=== PATIENT | female | born 1985 | race Caucasian/White ===

== ENCOUNTER 2024-06-02 09:43 | Outpatient (REF) | payer MEDICAID, SELFPAY ==
--- OUTSIDE RECORDS SUMMARY | 2024-06-02 10:15 | XMS_ITS | Encounter Summary ---
Author Organization [employer] Address [address] 7[address] [place] [address] Care Team Providers Care House Detective Name Role Phone Unavailable Primary Care Provider Unavailabl e Reason for Visit * Reason Comments Pre-visit Planning SDOH Screening negat monisha and Tobacco screening negative Encounter Details Date Type Department Care Team ([facility] st Contact Info) Description 05/19/2024 Patient Outreach [facility] MEDICINE [address] [place] [address] Liz Goldberg MD [address] [place] [address] Pre-visit Planning (SDOH Screening negative and Tobacco screening negative) Social History Tobacco Use Types Packs/Day Years Used Date Smoking Tobacco: Never Smokeless Tobacco: Never Housing Stability Answer Date Recorded What is your housing situation today? I have anastacia tirado 05/19/[address] you li ve. Do you have problems with any of the following? None of the above 05/19/2024 Food Insecurity Answer Date Recorded Within the past 12 months, y ou worried that your food would run out before you got money to buy more: Never True 05/19/2024 Within the past 12 months,th e food you bought just didn't last and you didn't have enough money to get more: Never True Transportation Answer Date Recorded In the past 12 months, has l ack of transportation kept you from medical appts, meetings, work or from getting things needed for daily living? No 05/19/2024 Utilities Answer Date Recorded In the past 12 months, has t he electric, gas, oil or water company threatened to shut off services in your home? No 05/19/2024 Internet Access Answer Date Recorded Internet Access Q1 Yes 05/19/2024 Internet Access Q2 Not on file 05/19/2024 Comments Unknown Sex and Gender Information Value Date Recorded Sex Assigned at Female 02/17/2022 10:15 AM EDT Legal Sex Female 10:15 AM EDT Gender Identity Female 08/25/2023 8:28 AM EDT Sexual Orientation Straight 08/25/2023 8: 28 AM EDT documented as of this encounter Progress Notes * Cynthia Gimenez - 05/19/2024 2:21 PM EST TAYLOR Zacarias placed successful outbound call to patient for pre-visit planning. Patient name and confirmed. Patient confirms appt date and time, and has transportation arrangements. Biggest concern for appointment at this time is no concerns for now. Patient advised to bring to appointment a photo id and insurance card. Appropriate screenings completed in anticipation of appointment. documented in this encounter Plan of Treatment Not on file documented as of this encounter Visit Diagnoses Not on filedocumented in this encounter
--- OUTSIDE RECORDS SUMMARY | 2024-06-02 10:15 | XMS_ITS | Encounter Summary ---
Author Organization [employer] Address [address] [place] [address] Care Team Providers Care Supervisor Metal Furniture Assembly Name Role Phone Unavailable Primary Care Provider Unavailabl e Encounter Details Date Type Department Care Team (Late st Contact Info) Description 06/02/2024 9:00 AM EST Office Visit [facility] MEDICINE [address] [place] [address] Liz Goldberg MD [address], [place] [phone] Routine general medical examination at a health care facility (Primary Dx); Screening for lipid disorders; Screening for diabetes mellitus; Routine screening for STI (sexually transmitted infection); Metabolic dysfunction-associate d steatotic liver disease (MASLD); Elevated BP without diagnosis of hypertension; Dietary counseling; Exercise counseling; Class 1 obesity due to excess calories with serious comorbidity and body mass index (BMI) of 33.0 to 33.9 in adult Social History Tobacco Use Types Packs/Day Years Used Date Smoking Tobacco: Never Smokeless Tobacco: Never Depression Answer Date Recorded Patient Health Questionnaire-9 Score 15 06/02/2024 Patient Health Questionnaire-9 Score 15 06/02/2024 Last PHQ-9: Questionnaire Data Not on file 0 06/02/2024 Housing Stability Answer Date Recorded What is [...] off services in your home? No 05/19/2024 Depression Answer Date Recorded Patient Health Questionnaire-2 Score 5 06/02/2024 Internet Access Answer Date Recorded Internet Access Q1 Yes 05/19/2024 Internet Access Q2 Not on file 05/19/2024 Comments Unknown Sex and Gender Information Value Date Recorded Sex Assigned at Female 02/17/2022 10:15 AM EDT Legal Sex Female 10:15 AM EDT Gender Identity Female 08/25/2023 8:28 AM EDT Sexual Orientation Straight 08/25/2023 8: 28 AM EDT documented as of this encounter Last Filed Vital Signs Vital Sign Reading Time Taken Comments Blood Pressure 118/100 06/02/2024 9:02 AM EST Pulse 64 06/02/2024 9:02 AM EST Temperature 37.2 ??C (99 ??F) 06/02/2024 9:02 AM EST Respiratory Rate 12 06/02/2024 9:02 AM EST Oxygen Saturation - - Inhaled Oxygen Concentration - - Weight 71.4 kg (157 lb 6.4 oz) 06/02/2024 9:02 A M EST Height 147 cm (4' 9.87 ) 06/02/2024 9:02 AM EST Body Mass Index 33.04 06/02/2024 9:02 AM EST documented in this encounter Plan of Treatment Scheduled Orders Name Type Priority Associated Diagnoses Orde r Schedule Syphilis Screen Lab Routine Routine screening for STI (sexually transmitted infection) Expected: 06/02/2024 (Approximate), Expires: 06/02/2025 Hepatitis C Antibody with Reflex to HCV, RNA, Quantitative, Real-Time PCR Lab Routine Routine screening for STI (sexually transmitted infection) Expected: 06/02/2024 (Approximate), Expires: 06/02/2025 Hepatitis B Surface Antibody, Qualitative Lab Routine Routine screening for STI (sexually transmitted infection) Expected: 06/02/2024 (Approximate), Expires: 06/02/2025 Hepatitis B Core Antibody, Total Lab Routine Routine screening for STI (sexually transmitted infection) Expected: 06/02/2024 (Approximate), Expires: 06/02/2025 Chlamydia/N. Gonorrhoeae RNA, TMA, Urogenitial Microbiology Routine Routine screening for STI (sexually transmitted infection) Expected: 06/02/2024 (Approximate), Expires: 06/02/2025 HIV-1/2 Antigen and Antibodies, Fourth Generation, with Reflexes Lab Routine Routine screening for STI (sexually transmitted infection) Expected: 06/02/2024 (Approximate), Expires: 06/02/2025 Hepatitis B surface antigen, EIA Lab Routine Routine screening for STI (sexually transmitted infection) Expected: 06/02/2024 (Approximate), Expires: 06/02/2025 TSH with Reflex to Free T4 Lab Routine Elevated BP without diagnosis of hypertension Class 1 obesity due to excess calories with serious comorbidity and body mass index (BMI) of 33.0 to 33.9 in adult Expected: 06/02/2024 (Approximate), Expires: 06/02/2025 Hemoglobin A1c Lab Routine Screening for diabetes mellitus Expected: 06/02/2024 (Approximate), Expires: 06/02/2025 Comprehensive Metabolic Panel Lab Routine Metabolic dysfunction-associated steatotic liver disease (MASLD) Expected: 06/02/2024 (Approximate), Expires: 06/02/2025 Lipid Panel with Reflex to Direct LDL Lab Routine Screening for lipid disorders Expected: 06/02/2024 (Approximate), Expires: 06/02/2025 Albumin, Random Urine W/Creatinine Lab Routine Elevated BP without diagnosis of hypertension Expected: 06/02/2024 (Approximate), Expires: 06/02/2025 documented as of this encounter Visit Diagnoses Diagnosis Routine general medical examination at a health care facility- Primary Screening for lipid disorders Screening for diabetes mellitus Routine screening for STI (sexually transmitted infection) Screening examination for venereal disease Metabolic dysfunction-associated steatotic liver disease (MASLD) Elevated BP without diagnosis of hypertension Dietary counseling Dietary surveillance and counseling Exercise counseling Class 1 obesity due to excess calories with serious comorbidity and body mass index (BMI) of 33.0 to 33.9 in adult documented in this encounter Additional Health Concerns Assessment Noted Time PHQ-9 Depression Total Score: 15 025 10:06 AM EST documented as of this encounter
--- OUTSIDE RECORDS SUMMARY | 2024-06-02 10:15 | XMS_ITS | Encounter Summary ---
Author Organization [employer] [facility] Address [address] [place] [address] Care Team Providers Care Boiler Assistant Operator Name Role Phone Unavailable Primary Care Provider Unavailabl e Reason for Visit * Reason Onset Date Comments chart prep 05/27/2024 Encounter Details Date Type Department Care Team ([facility] st Contact Info) Description 05/27/2024 Telephone [facility] MEDICINE [address] [place] [address] Nancy Bhat MA chart prep Social History Tobacco Use Types Packs/Day Years [...] AM EDT documented as of this encounter Miscellaneous Notes * Telephone Encounter - Nancy Bhat MA - 05/27/2024 1:58 PM EST .Chart Prep Labs: not applicable Images: not applicable Vaccines due: Covid Due, Hep A Due, Hep B Due, and Flu Due Referrals: Completed Screenings: PAP Overdue care gaps: Sbirt, PHQ-9, and Tobias-7 documented in this encounter Plan of Treatment Not on file documented as of this encounter Visit Diagnoses Not on filedocumented in this encounter
--- OUTSIDE RECORDS SUMMARY | 2024-06-02 10:15 | XMS_ITS | Clinical Summary ---
Author Organization [employer] Address [address] 7t [place] [address] Care Team Providers Care Senior Geotechnical Engineer Name Role Phone Unavailable Primary Care Provider Unavailabl e Allergies Active Allergy Reactions Criticality Noted Date Comments Ibuprofen 08/25/2023 Body feels numb when taking, pt is ruling it an allergy Lactose 08/25/2023 Latex 08/25/2023 Penicillin G Anaphylaxis High 08/25/2023 Shellfish-Derived Products Medications DULoxetine (Cymbalta) [address] capsule Take 40 mg by mouth Once per day. 06/25/2023 Active cetirizine (ZyrTEC) 10 MG tablet Take 10 mg by mouth Once per day. 02/26/2023 Active famotidine (Pepcid) 20 MG tablet Take 20 mg by mouth 2 times daily. 02/04/2023 Active topiramate (Topamax) 25 MG tablet Take 1 tablet (25 mg) by mouth at bedtime. 30 tablet 11 06/02/2024 Active Active Problems Problem Noted Date Diagnosed Date Elevated BP without diagnosis of hypertension Headache 03/12/2022 Overview (06/01/2024): 37-year-old female with PMH of kidney stones, SIDDHARTHA, primary insomnia, conversion disorder, GERD, microscopic hematuria presenting for telehealth visit with a complaint of new onset headache ongoing for the last 2 to 3 months. Suspect that she might have diagnosis of migraine. Fortunately, she does not have red flag symptoms as outlined in the subjective. However, since this is a new headache with different characterization of headaches that she used to previously get there is concern for possible intracranial process going on. - Head CT ordered - I discussed with her to keep track of possible aggravating or alleviating factors for her headache. - I discussed with her she can take Tylenol 1 g every 8 hours and alternate with NSAID either ibuprofen or naproxen. Discussed with her to take the NSAIDs with food. - Red flag symptoms including fever, pain with turning her head left and right, episodes of passing out or lightheadedness, vomiting are all concerning and warrant her to go to the emergency department for emergent evaluation. - I discussed with her that she should have the head CT done as soon as possible so that we can make sure there is not something more insidious and concerning going on. -She should return for visit within 1 to 2 weeks, ideally with head CT done prior to return visit. Gastroesophageal reflux 06/11/2021 Hepatic lesion 06/11/2021 Metabolic dysfunction-associ ated steatotic liver disease (MASLD) 06/11/2021 Major depressive disorder 04/04/2020 Generalized anxiety disorder 02/09/2020 Conversion disorder 12/15/2018 Encounters Date Type Department Care Team Description 06/02/2024 9:00 AM EST Office Visit [address] [address] Liz Goldberg MD Routine general medical examination at a health care facility (Primary Dx); Screening for lipid disorders; Screening for diabetes mellitus; Routine screening for STI (sexually transmitted infection); Metabolic dysfunction-associat ed steatotic liver disease (MASLD); Elevated BP without diagnosis of hypertension; Dietary counseling; Exercise counseling; Class 1 obesity due to excess calories with serious comorbidity and body mass index (BMI) of 33.0 to 33.9 in adult 06/02/2024 Travel 05/27/[address] [address] Nancy Bhat MA chart prep 05/19/2024 Patient Outreach [address] [address] Liz Goldberg MD Pre-visit Planning (SDOH Screening negative and Tobacco screening negative) 04/01/[address] [address] Liz Goldberg MD Appointment Request from Last 3 Months Immunizations Name Administration Dates Next Due Tdap 02/14/2020 Social History Tobacco Use Types Packs/Day Years Used Date Smoking Tobacco: Never Smokeless Tobacco: Never Tobacco Cessation:Counseling Given: Not Answered Depression Answer Date Recorded Patient Health Questionnaire-9 [...] Orientation Straight 08/25/2023 8: 28 AM EDT Last Filed Vital Signs Vital Sign Reading [...] Mass Index 33.04 06/02/2024 9:02 AM EST Plan of Treatment Health Maintenance Due Date Last Done Comments Dental Oral Exam 1986 Dental Prophylaxis 1986 Dental X-Ray: Full Mouth 1986 Depression Screening 1986 HIV Screening 1986 Alcohol/Substance Use Screening 1998 Family Planning (PISQ) 2001 Hepatitis C Screening 02/04/2004 Hepatitis A Vaccines (1 of 2 - Risk 2-dose series) 2005 Hepatitis B Vaccines (1 of 3 - 19+ 3-dose series) 2005 Pap Smear 2007 Cervical Cancer Screening 02/04/2016 HPV/Cotest 02/04/2016 COVID-19 Vaccine (1 - 2023-2 5 season) 2023 Influenza Vaccine (#1) 2023 Tobacco Screening 08/24/2024 08/25/2023 Dental X-Ray: Bitewings 08/25/2024 08/25/2023 SDOH Screening 05/19/2025 05/19/2024 DTaP/Tdap/Td Vaccines (2 - T d or Tdap) 02/13/2030 02/14/2020 Zoster Vaccines (1 of 2) 02/04/2036 RSV Patients and Pa tients Aged 60 years or older (1 - 1-dose 75+ series) 2061 HIB Vaccines Aged Out No longer eligi ble based on patient's age to complete this topic HPV Vaccines Aged Out No longer eligi ble based on patient's age to complete this topic IPV Vaccines Aged Out No longer eligi ble based on patient's age to complete this topic Meningococcal Vaccine Aged Out No jodi arline eligible based on patient's age to complete this topic Pneumococcal Vaccine: Pediat rics (0 to 5 Years) and At-Risk Patients (6 to 49) Years) Aged Out No longer elig ible based on patient's age to complete this topic RSV under 20 months Aged Out No longe r eligible based on patient's age to complete this topic Rotavirus Vaccines Aged Out No longer eligible based on patient's age to complete this topic Procedures Procedure Name Priority Date/Time Associated Diagnosis Comments BITEWING - SINGLE RADIOGRAPHIC IMAGE Routine 08/25/2023 2:00 PM EDT from Last 3 Months or Most Recently Relevant to Health Maintenance Insurance [facility] C3 DENTAL-[facility] MEDICAID STAND ADULT
--- OUTSIDE RECORDS SUMMARY | 2024-06-02 10:15 | XMS_ITS | Encounter Summary ---
Author Organization [employer] [facility] Address [address] [place] [address] Care Team Providers Care Instrumental Musician Name Role Phone Unavailable Primary Care Provider Unavailabl e Encounter Details Date Type Department Care Team (Latest Contact Info) Description 06/02/2024 Travel Social History Tobacco Use Types Packs/Day Years [...] AM EDT documented as of this encounter Plan of Treatment Not on file documented as of this encounter Visit Diagnoses Not on filedocumented in this encounter Additional Health Concerns Assessment Noted Time PHQ-9 Depression Total Score: 15 06/02/ 025 10:06 AM EST documented as of this encounter
[2024-06-02 11:46] LABS: Estimated Average Glucose 108 mg/dL; Hemoglobin A1c % 5.4 % (<6.0); Total Hemoglobin (HGBA1C) 3212.0757 umol/L
[2024-06-02 12:05] LABS: Alanine Aminotransferase 39 U/L (0-31); Albumin Level 3.9 g/dL (3.5-5.0); Alkaline Phosphatase 89 U/L (39-117); Anion Gap 13 (12-20); Aspartate Amino Transferase 44 U/L (5-31); Bilirubin Total 0.3 mg/dL (0.0-1.0); Blood Urea Nitrogen 11 mg/dL (9-16); Calcium 9.1 mg/dL (8.4-10.2); Carbon Dioxide 24 mmol/L (22-29); Chloride 106 mmol/L (96-108); Cholesterol 204 mg/dL (<200); Estimated Glomerular Filt Rate > 60; Glucose Random 109 mg/dL (60-115); HDL Cholesterol 41 mg/dL (>40); LDL Cholesterol Calculated 117 mg/dL (<100); Potassium 3.7 mmol/L (3.3-5.1); Sodium 139 mmol/L (135-145); Total Protein 7.8 g/dL (6.5-8.0); Triglycerides 234 mg/dL (<150)
[2024-06-02 12:08] LABS: HBc Num1 0.12 S/CO (0.00-0.79); HIV AB/AG Nonreactive (Nonreactive); HIV Num 1 0.04 S/CO (0.00-0.99); Hepatitis B Core Antibody Nonreactive (Nonreactive); Hepatitis B Surface Antigen Negative (Negative); ~HepC Num1 0.87 S/CO (0.00-0.79); ~Hepatitis B Surface Antibody REACTIVE (Nonreactive)
[2024-06-02 12:09] LABS: TSH reflex Free T4 3.49 uIU/mL (0.32-4.0)
[2024-06-02 12:10] LABS: Syphilis Screen Nonreactive (Nonreactive)
[2024-06-02 12:28] LABS: Reflex LDLD? No
[2024-06-02 12:59] LABS: ~HepC Num2 0.92; ~HepC Num3 0.85; ~Hepatitis C Antibody GRAYZONE (Nonreactive)
[2024-06-06 17:23] LABS: HCV Log PCR <1.18 NOT DETECTED Log IU/mL (NOT DETECTED); HepC Viral Load <15 NOT DETECTED IU/mL (NOT DETECTED)
== END 2024-06-02 09:44 | disposition home or self-care (01) ==
LOC: HO.HHCL 09:43
PROVIDERS: Visit Provider Family Medicine
DX: K76.0 Fatty (change of) liver, not elsewhere classified (principal); Z11.3 Encounter for screening for infections with a predominantly sexual mode of transmission; R03.0 Elevated blood-pressure reading, without diagnosis of hypertension; E66.811 Obesity, class 1; E66.09 Other obesity due to excess calories; Z68.33 Body mass index [BMI] 33.0-33.9, adult; Z13.220 Encounter for screening for lipoid disorders; Z13.1 Encounter for screening for diabetes mellitus
CPT/HCPCS: 36415; 80053; 80061; 83036; 84443; 86704; 86706; 86780; 86803; 87340; 87389; 87522

== ENCOUNTER 2024-08-19 09:27 | Outpatient (REF) | payer MEDICAID, SELFPAY ==
--- NOTE | ~2024-08-19 | US_ITS ---
EXAMINATION: US ABDOMEN COMPLETE WITH LIVER ELASTOGRAPHY HISTORY: elevated liver enzyme, likely fatty liver TECHNIQUE: Real-time grayscale ultrasound imaging of the abdomen was performed and images were reviewed. COMPARISON: There are no prior studies for comparison. FINDINGS: Liver: The right lobe of the liver measures 15.4 cm in size. The left lobe of the liver measures 8.1 cm in size. The liver demonstrates increased echotexture, consistent with steatosis. No focal mass or intrahepatic biliary ductal dilatation is identified. There is normal hepatopedal flow in the portal vein. Ultrasound elastography of the liver was performed with 10 separate measurements of the liver parenchyma with the patient in the supine position. Measurements were obtained approximately 2 cm below Zonia's capsule and perpendicular to the capsule. Images are of satisfactory quality. The median shear wave velocity is 1.36 m/s. The interquartile range/median (IQR/median) is 0.07. Gallbladder and biliary tree: The gallbladder is unremarkable, without evidence of calculi, wall thickening, or pericholecystic fluid. There is no sonographic Blevins sign. The common bile duct is normal in caliber measuring 5 mm. Kidneys: The right kidney measures 9.6 cm in length. The left kidney measures 11.1 cm in length. There is a subcentimeter cyst in the interpolar region of the left kidney. The kidneys are otherwise unremarkable, without evidence of solid masses, hydronephrosis, or calculi. Pancreas: The pancreatic head, neck, and body are unremarkable. The pancreatic tail is obscured by bowel gas. Spleen: The spleen is normal in size and contour, measuring 9.4 cm in length. Abdominal aorta and inferior vena cava: The visualized portions of the abdominal aorta and inferior vena cava are normal in caliber. There is no free fluid in the abdomen. US/US abdomen comp w elastography IMPRESSION: Hepatic steatosis. The median shear wave velocity in the liver is 1.36 m/s, corresponding to a median liver stiffness of 5.87 kPa. The IQR/median value is 0.07. This is indicative of a quality data set. Findings are indicative of a low elastography value which rules out advanced chronic liver disease in asymptomatic patients. REFERENCE: Society of Radiologists in Ultrasound Liver Stiffness Thresholds (2020): LIVER STIFFNESS THRESHOLDS: *Shear wave velocity less than 1.3 m/s (Liver Stiffness equal or less than 5 kPa): High probability of being normal. *Shear wave velocity less than 1.7 m/s (Liver Stiffness less than 9 kPa): In the absence of other known clinical signs, rules out compensated advanced chronic liver disease. *Shear wave velocity between 1.7-2.1 m/s (Liver Stiffness 9-13 kPa): Suggestive of compensated advanced chronic liver disease but need further test for confirmation. *Shear wave velocity between 2.1-2.4 m/s (Liver Stiffness 13-17 kPa): Rules in compensated advanced chronic liver disease. *Shear wave velocity greater than 2.4 m/s (Liver Stiffness over 17 kPa): Suggestive of clinically significant portal hypertension. QUALITY OF DATA SET: *IQR/Median value equal or less that 0.15 implies a quality data set. *IQR/Median value over 0.15 implies a poor quality data set. SIGNIFICANT CHANGE FROM PRIOR EXAM: Significant change if liver stiffness measurement is 10% or greater from prior exam. OTHER CONSIDERATIONS: The stage of liver fibrosis may be overestimated in the setting of acute hepatitis, liver inflammation, elevated liver function tests, hepatic vascular congestion, obstructive cholestasis, non-fasting state, and infiltrative diseases such as amyloidosis and lymphoma. In some patients with NAFLD, the liver stiffness thresholds for compensated advanced chronic liver disease may be lower. In causes other than viral hepatitis and NAFLD, liver stiffness thresholds are not well established. Electronically signed by: Demarcus Barclay MD 08/19/2024 10:41 AM EDT
--- OUTSIDE RECORDS SUMMARY | 2024-08-19 10:14 | XMS_ITS | Encounter Summary ---
Author Organization [facility] Address [address] [place] [address] Care Team Providers Care Host/Hostess Head Name Role Phone Jaydon Bowen MD Primary Care Provider [phone] Neel Randolph MD Primary Care Provider [phone] Hortensia Henry Unavailable [phone] Carlos Alberto Urias MD Unavailable Tracy Gillespie DO Unavailable Unavailable Uma Dorantes MD Unavailable [phone] Tacho Castillo DO Primary Care Provider + [phone] Jessica Cortez DO Unavailable [phone] Kathrine Stephens LPCA Unavailable [phone] Stu Erickson MD Unavailable [phone] Savita Lyons RN Unavailable [phone] Celena Morrow DO Primary Care Provider Titus Maki ALUMINUM SIDING INSTALLER Unavailable Unknown Primary Care Provider [phone] Elsa Batista ALUMINUM SIDING INSTALLER Unavailable [phone] Encounter Details Date Type Department Care Team (Late st Contact Info) Description 11/11/2016 Scanned Document [facility] [address] [place] [address] [address]th [place] [address] Carlos Alberto Urias MD [address] [address] Social History Tobacco Use Types Packs/Day Years Used Date Smoking Tobacco: Never Assessed Comments Unknown Sex and Gender Information Value Date Recorded Sex Assigned at Female 09/07/2022 6:25 AM EDT Legal Sex Female 12:39 AM EDT Gender Identity Female 09/07/2022 6:25 AM EDT Sexual Orientation Heterosexual (straight) 09/07 6:25 AM EDT documented as of this encounter Plan of Treatment Not on file documented as of this encounter Visit Diagnoses Not on filedocumented in this encounter Care Teams Host/Hostess Head Relationship Specialty Start Date End Date Jaydon Bowen MD PCP - General Internal Medicine 12/23/18 01/12/19 Neel Randolph MD PCP - General Internal Medicine 01/13/19 10/16/19 Tacho Castillo DO PCP - General Internal Medicine 10/17/19 10/27/22 Celena Morrow DO [address] [place] [address] PCP - General Internal Medicine 10/28/22 07/26/23 Unknown Unknow Provider Address PCP - General 07/27/23 Hortensia Henry [address] [place] [address] Lift Operator 01/31/19 05/04/19 Carlos Alberto Urias MD [address] [address] Neurology 03/10/19 Jose Miguel TracyDO Resident Psychiatry, General 03/21/19 03/10/20 Uma Dorantes MD Primary Attending Psychiatry, General 05/05/1902/19 Jessica Cortez DO Primary Attending Psychiatry, General 12/15/19 Kathrine Stephens [facility] Clinician Social Work 12/14/20 04/28/21 Stu Erickson MD [address] [place] [address] Medicine Hospitalist 06/19/21 Savita Lyons, RN [address] [address] Registered Nurse Hepatology 06/19/21 Titus Maki LCSW [address] [place] [phone] Knotting Machine Operator Portable Clinical Social Work 11/26/22 Elsa Batista LCSW [address] [place] [id number] Knotting Machine Operator Portable Clinical Social Work 05/16/24 05/16/24 documented as of this encounter
--- OUTSIDE RECORDS SUMMARY | 2024-08-19 10:14 | XMS_ITS | Encounter Summary ---
Author Organization [facility] Address [address] [place] [address] Care Team Providers Care Petroleum Plant Operator Name Role Phone Jaydon Bowen MD Primary Care Provider [phone] Neel Randolph MD Primary Care Provider [phone] Hortensia Henry Unavailable [phone] Carlos Alberto Urias MD Unavailable Tracy Gillespie DO Unavailable Unavailable Uma Dorantes MD Unavailable [phone] Tacho Castillo DO Primary Care Provider + [phone] Jessica Cortez DO Unavailable [phone] Kathrine Stephens LPCA Unavailable [phone] Stu Erickson MD Unavailable [phone] Savita Lyons RN Unavailable [phone] Celena Morrow DO Primary Care Provider [phone] Titus Maki ADULT NEUROPSYCHOLOGIST Unavailable [phone] Unknown Primary Care Provider [phone] -[phone] Elsa Batista ADULT NEUROPSYCHOLOGIST Unavailable [phone] Encounter Details Date Type Department Care Team (Late st Contact Info) Description 07/10/2016 Scanned Document [facility] [address] [place] [address] [address]th [place] [address] Carlos Alberto Urias MD [address] [address] Social History Tobacco Use Types Packs/Day Years [...] on filedocumented in this encounter Care Teams Petroleum Plant Operator Relationship Specialty Start Date End Date Jaydon Bowen MD PCP - General Internal Medicine 12/23/18 01/12/19 Neel Randolph MD PCP - General Internal Medicine 01/13/19 10/16/19 Tacho Castillo DO PCP - General Internal Medicine 10/17/19 10/27/22 Celena Morrow DO [address] [place] [phone] PCP - General Internal Medicine 10/28/22 07/26/23 Unknown Unknow Provider Address PCP - General 07/27/23 Hortensia Henry [address] [place] [address] Residential Living Assistant 01/31/19 05/04/19 Carlos Alberto Urias MD [address] [address] Neurology 03/10/19 Jose Miguel TracyDO Resident Psychiatry, General 03/21/19 03/10/20 Uma Dorantes MD Primary Attending Psychiatry, General 05/05/1902/19 Jessica Cortez DO Primary Attending Psychiatry, General 12/15/19 Kathrine Stephens [facility] Clinician Social Work 12/14/20 04/28/21 Stu Erickson MD [address] [place] [address] Medicine Hospitalist 06/19/21 Svaita Lyons, RN [address] [address] Registered Nurse Hepatology 06/19/21 Titus Maki LCSW [address] [place] [address] Cloth Shearer Clinical Social Work 11/26/22 Elsa Batista LCSW [address] [place] [address] Cloth Shearer Clinical Social Work 05/16/24 05/16/24 documented as of this encounter
--- OUTSIDE RECORDS SUMMARY | 2024-08-19 10:14 | XMS_ITS | Encounter Summary ---
Author Organization [facility] Address [address] [place] [address] Care Team Providers Care Front Office Representative Name Role Phone Jaydon Bowen MD Primary Care Provider [phone] Neel Randolph MD Primary Care Provider [phone] Hortensia Henry Unavailable [phone] Carlos Alberto Urias MD Unavailable Tracy Gillespie DO Unavailable Unavailable Uma Dorantes MD Unavailable [phone] Tacho Castillo DO Primary Care Provider + [phone] Jessica Cortez DO Unavailable [phone] Kathrine Stephens LPCA Unavailable [phone] Stu Erickson MD Unavailable [phone] Savita Lyons RN Unavailable [phone] Celena Morrow DO Primary Care Provider Titus Maki MANUFACTURING FINANCE MANAGER Unavailable Unknown Primary Care Provider [phone] Elsa Batista MANUFACTURING FINANCE MANAGER Unavailable [phone] Encounter Details Date Type Department Care Team (Late st Contact Info) Description 05/22/2017 Scanned Document [facility] [address] [place] [address] [address] [place] [address] Carlos Alberto Urias MD [address] [address] Social History Tobacco Use Types Packs/Day Years [...] on filedocumented in this encounter Care Teams Front Office Representative Relationship Specialty Start Date End Date Jaydon Bowen MD PCP - General Internal Medicine 12/23/18 01/12/19 Neel Randolph MD PCP - General Internal Medicine 01/13/19 10/16/19 Tacho Castillo DO PCP - General Internal Medicine 10/17/19 10/27/22 Celena Morrow DO [address] [place] [address] PCP - General Internal Medicine 10/28/22 07/26/23 Unknown Unknow Provider Address PCP - General 07/27/23 Hortensia Henry [address] [place] [address] General Internist And Physician Leader 01/31/19 05/04/19 Carlos Alberto Urias MD [address] [address] Neurology 03/10/19 Jose Miguel TracyDO Resident Psychiatry, General 03/21/19 03/10/20 Uma Dorantes MD Primary Attending Psychiatry, General 05/05/1902/19 Jessica Cortez DO Primary Attending Psychiatry, General 12/15/19 Kathrine Stephens [facility] Clinician Social Work 12/14/20 04/28/21 Stu Erickson MD [address] [place] [address] Medicine Hospitalist 06/19/21 Savita Lyons, RN [address] [address] Registered Nurse Hepatology 06/19/21 Titus Maki LCSW [address] [place] [address] Rubber Engraver Clinical Social Work 11/26/22 Elsa Batista LCSW [address] [place] [address] Rubber Engraver Clinical Social Work 05/16/24 05/16/24 documented as of this encounter
--- OUTSIDE RECORDS SUMMARY | 2024-08-19 10:14 | XMS_ITS | Clinical Summary ---
Author Organization [facility] Address [address] [place] [address] Care Team Providers Care Corporate Learning Consultant Name Role Phone Carlos Alberto Urias MD Unavailable Jessica Cortez DO Unavailable Stu Erickson MD Unavailable [phone] Savita Lyons RN Unavailable [phone] Titus Maki MARKET RESEARCH MANAGER Unavailable Unknown Primary Care Provider [phone] Allergies Active Allergy Reactions Criticality Noted Date Comments Fish-Derived Products Anaphylaxis High 09/20/2020 Ibuprofen Anaphylaxis High 07/14/2018 my body paralysis. Lactose GI Intolerance/Nausea/Vom iting Low 09/20/2020 Latex Rash/Dermatitis Low 09/20/2020 Penicillins Rash/Dermatitis Low 09/04/2018 Shellfish-Derived Products Anaphylaxis High 09/20/2020 Medications * This document contains information received from the source organization and may not represent a complete record from that organization. famotidine (PEPCID) 20 MG tabletIndication s:Gastroesophage al reflux disease, unspecified whether esophagitis present Take 1 tablet (20 mg total) by mouth 2 (two) times a day. 180 tablet 3 3 Active cetirizine (ZyrTEC) 10 MG tabletIndication s:Allergy, initial encounter Take 1 tablet (10 mg total) by mouth daily. 90 tablet 1 3 Active vitamin D3 (CHOLECALCIFEROL ) 1.25 MG (19080 UT) tabletIndication s:Vitamin D deficiency Take 1 tablet (50,000 Units total) by mouth once a week. 20 tablet 3 Active ferrous sulfate 325 (65 FE) MG EC tabletIndication s:Iron deficiency Take 1 tablet (325 mg total) by mouth daily. Take 2 hours before or 4 hours after acid reducers. 30 tablet 3 Active DULoxetine (CYMBALTA) 20 MG capsuleIndicatio ns:Moderate episode of recurrent major depressive disorder (HCC) Take 2 capsules (40 mg total) by mouth daily. 60 capsule 2 4 Active Active Problems Problem Noted Date Diagnosed Date Headache 03/12/2022 Overview (03/12/2022): 37-year-old female with PMH of kidney stones, RUBÉN, primary insomnia, conversion disorder, GERD, microscopic hematuria [...] head CT done prior to return visit. ?? Assessment & Plan (04/29/2022 2:19 PM EST): Her headaches are resolved at this time. She has not had any in at least 2 weeks now. Because of this, she held off on scheduling the CT head which I told her for now it's ok but that we do need to pursue this if symptoms recur. Assessment & Plan (03/12/2022 1:25 PM EST): Was seen 02/25 via Telehealth for 2 months of worsening headache, suspected migraine headaches but was also started on Flonase and cetirizine for allergy symptoms. Today she states she is having more headache-free days, no red flag symptoms. 1- 2 out of 10 in severity. She believes Flonase and cetirizine has helped. Neurological exam is unremarkable CT scan of the head was ordered to rule out other intracranial process in the setting of progressive headache symptoms. -Continue Flonase and cetirizine, she is not currently using any NSAIDs or Tylenol for pain -Instructed to call radiology to schedule for CT head -Return to clinic in 4 weeks or sooner if she experiences any lightheadedness, syncope, or vomiting NAFLD (nonalcoholic fatty liver disease) 022 Hepatic lesion 06/11/2021 Gastroesophageal reflux disease without esophagi tis 06/11/2021 Moderate episode of recurrent major depressive d isorder 04/04/2020 Assessment & Plan (04/29/2022 2:21 PM EST): She feels her medication may not be working as well as it did before. She does have follow-up appointment w psychiatry coming up soon and so I recommended she talks to them about possible med adjustments. Long-term current use of antidepressant 04/04/20 20 Generalized anxiety disorder 02/09/2020 Primary insomnia 02/09/2020 Conversion disorder with abnormal movement, acut e episode 12/15/2018 Assessment & Plan (12/27/2018 2:30 PM EDT): Patient reports having a history of seizure disorder since she was 10 years old when she had her trauma. She was on antiepileptic drugs previously. She was previously in [place] than [place] then moved to [place]. She was recently admitted to [facility] for long-term EEG monitoring and it was deemed that she does not have epilepsy and probably has conversion disorder. Patient's partners reports some seizure spells where patient goes stiff and then wakes up. Similar to previous episodes. -Patient instructed to follow-up with neurology as outpatient on 01/04/2019. Nonspecific paroxysmal spell 12/13/2018 Resolved Problems Problem Noted Date Diagnosed Date Resolved Date Apical periodontitis 06/01/2020 022 Current moderate episode of major depressive disorder 12/27/2018 05/19/2019 Assessment & Plan (12/27/2018 2:32 PM EDT): PHQ 9-15, rubén 7 -9, no suicidal ideation. Patient reports a previous history of anxiety/depression but currently not on any medications. -Ambulatory referral to psychology provided and patient told that she might be provided referral to psychiatrist and to follow-up with them. Patient in agreement with plan. Immunizations Immunization Administration Dates Next Due Tdap 02/14/2020 Family History Medical History Relation Name Comments Kidney Stones Brother Dementia Father Depression Mother Seizures Mother Suicide attempts Mother Bipolar disorder Sister Relation Name Status Comments Brother Alive Father Mother Sister Social History Tobacco Use Types Packs/Day Years Used Date Smoking Tobacco: Former Cigarettes 0 06/21/2014 - 06/21/2018 Smokeless Tobacco: Never Tobacco Cessation:Counseling Given: Not Answered Comments:social smoker with etoh only Alcohol Use Standard Drinks/Week Comments Yes 6 (1 standard drink = 0.6 oz pur e alcohol) only on weekend [facility] Utilities Answer Date Recorded In the past 12 months has th e electric, gas, oil, or water company threatened to shut off services in your home? No 02/04/2023 Overall Financial Resource Strain (CARDIA) Answe r Date Recorded How hard is it for you to pa y for the very basics like food, housing, medical care, and heating? Not very hard 02/04/2023 PHQ-2 Answer Date Recorded PHQ-2 Total Score 3 02/14/2020 Hunger Vital Sign Answer Date Recorded Within the past 12 months, y ou worried that your food would run out before you got the money to buy more. Sometimes true Within the past 12 months, t he food you bought just didn't last and you didn't have money to get more. Sometimes true PRAPARE - Transportation Answer Date Re corded In the past 12 months, has l ack of transportation kept you from medical appointments or from getting medications? No 01/18 In the past 12 months, has l ack of transportation kept you from meetings, work, or from getting things needed for daily living? No 02/04/2023 Housing Stability Vital Sign Answer New e Recorded In the last 12 months, was t here a time when you were not able to pay the mortgage or rent on time? No 02/04/2023 In the last 12 months, how many places have you lived? 1 02/04/2023 In the last 12 months, was t here a time when you did not have a steady place to sleep or slept in a assisted (including now)? No 02/04/2023 Comments No Sex and Gender Information Value Date Recorded Sex Assigned at Female 09/07/2022 6:25 AM EDT Legal Sex Female 12:39 AM EDT Gender Identity Female 09/07/2022 6:25 AM EDT Sexual Orientation Heterosexual (straight) 09/07 6:25 AM EDT Last Filed Vital Signs Vital Sign Reading Time Taken Comments Blood Pressure 133/88 04/07/2023 2:45 PM EST Pulse 113 04/07/2023 2:45 PM EST Temperature 36.1 ??C (97 ??F) 04/07/2023 2:45 PM EST Respiratory Rate 16 04/07/2023 2:45 PM EST Oxygen Saturation 98% 04/07/2023 2:45 PM EST Inhaled Oxygen Concentration - - Weight 67 kg (147 lb 9.6 oz) 04/07/2023 2:45 PM EST Height 147.3 cm (4' 9.99 ) 04/07/2023 2:45 PM ES T Body Mass Index 30.86 04/07/2023 2:45 PM EST Plan of Treatment Health Maintenance Due Date Last Done Comments Hepatitis B Vaccines (1 of 3 - 19+ 3-dose series) 2005 Pap Smear (Ages 21-65) 2007 Influenza Vaccine 11/19/2023 02/14/2020 (Declined) COVID-19 Vaccine (2023-2 5 season) 2023 DTaP/Tdap/Td Vaccines (2 - T d or Tdap) 02/13/2030 02/14/2020 HIV Screening Completed 02/14/2020 Hepatitis C Virus Screening Completed 02/14/2020 HPV Vaccines Aged Out No longer eligi ble based on patient's age to complete this topic Pneumococcal Vaccine: Pediatric (0-5 Years) and At-Risk Patients (6 to 49 Years) Aged Out No longer eligible b ased on patient's age to complete this topic Procedures Procedure Name Priority Date/Time Associated Diagnosis Comments HIV 1/2 AG/AB CMIA REFLEX TO CONFIRMATION Routine 02/14/2020 11:04 AM EDT Screening for HIV (human immunodeficiency virus) HEPATITIS C VIRUS (HCV) ANTIBODY HPCB Routine 02/14/2020 11:04 AM EDT Encounter for hepatitis C screening test for low risk patient from Last 3 Months or Most Recently Relevant to Health Maintenance Results * (ABNORMAL) Hepatitis C Virus (HCV) Antibody (02/14/2020 11:04 AM EDT) Hepatitis C Antibody 1.19(H) 0.00 - 0.79 S/CO ratio [facility] Hepatitis C Antibody Interpretation Reactive (A) Nonreactive [facility] Comment: CDC recommends a bulfbh-qj-jkizit (S/CO) ratio equal to or >5 to predict true infection 95% of the time. Low reactive results (1:00-4.99 S/CO) should be confirmed by HCV nucleic acid testing (test code 12462/[facility]). Performed at [facility] [place] License [id number] ??CLIA [id number] Blood specimen (specimen) Heel structure / Unknown 02/14/2020 11:04 AM EDT 02/14/2020 2:59 PM EDT us Jaydon Bowen MD LAB BLOOD ORDERABLES Final Result [facility] * HIV 1/2 Ag/Ab CMIA Reflex to Confirmation (02/14/2020 11:04 AM EDT) HIV 1/2 Ag/Ab CMIA Nonreactive Nonreactive [facility] Comment: Results show no evidence of infection by HIV 1/2. If clinically indicated, repeat CMIA or test by nucleic acid amplification. Performed at [facility] [place] License 0385 ??CLIA [id number] Blood specimen (specimen) Heel structure / Unknown 02/14/2020 11:04 AM EDT 02/14/2020 2:59 PM EDT Jaydon Bowen MD LAB BLOOD ORDERABLES Final Result [facility] from Last 3 Months or Most Recently Relevant to Health Maintenance Insurance [facility] Advance Directives * Full Code (Latest Code Status on File) Date Activated Date Inactivated Comments 12/13/2018 11:31 AM 04/27/2021 4:20 AM Care Teams Corporate Learning Consultant Relationship Specialty Start Date End Date Unknown Unknow Provider Address PCP - General 07/27/23 Carlos Alberto Urias MD [address] [address] Neurology 03/10/19 Jessica Cortez DO [address] [address] [place] [address] Primary BH Attending Psychiatry, General 12/15/19 Stu Erickson MD [address] [place] [address] Medicine Hospitalist 06/19/21 Savita Lyons RN [address] [place] [address] [address] [place] [address] Registered Nurse Hepatology 06/19/21 Titus Maki LCSW [address] [place] [address] Imaging Administrator Clinical Social Work 11/26/22
--- OUTSIDE RECORDS SUMMARY | 2024-08-19 10:14 | XMS_ITS | Encounter Summary ---
Author Organization [facility] Address [address] [place] [address] Care Team Providers Care Supervisor Motorcycle Repair Shop Name Role Phone Carlos Alberto Urias MD Unavailable Jessica Cortez DO Unavailable Stu Erickson MD Unavailable [phone] Savita Lyons RN Unavailable [phone] Celena Morrow DO Primary Care Provider Titus Maki OPERATIONS EXAMINER Unavailable Unknown Primary Care Provider +[phone] -0000 Elsa Batista OPERATIONS EXAMINER Unavailable [phone] Encounter Details Date Type Department Care Team (Late st Contact Info) Description 07/24/2023 Telephone [facility] [address] [address] Caitlyn Velásquez SD [address] [place] [address] Social History Tobacco Use Types Packs/Day Years Used Date Smoking Tobacco: Former Cigarettes 0 06/21/2014 - 06/21/2018 Smokeless Tobacco: Never Comments:social smoker with etoh only Alcohol Use Standard Drinks/Week Comments Yes 6 (1 standard drink = 0.6 oz pur e alcohol) only on weekend [facility] Utilities Answer Date Recorded In the past 12 months has [employer], gas, oil, or water [employer] threatened to shut off services in your [...] place to sleep or slept in a detention (including now)? No 02/04/2023 Comments No Sex and Gender Information Value Date Recorded Sex Assigned at Female 09/07/2022 6:25 AM EDT Legal Sex Female 12:39 AM EDT Gender Identity Female 09/07/2022 6:25 AM EDT Sexual Orientation Heterosexual (straight) 09/07 6:25 AM EDT documented as of this encounter Miscellaneous Notes * Telephone Encounter - Caitlyn Velásquez MA - 07/24/2023 4:06 PM EDT PT MOVED OUT OF STATE TO [facility]. WILL NO LONGER NEED OUR SERVICES documented in this encounter Plan of Treatment Not on file documented as of this encounter Visit Diagnoses Not on filedocumented in this encounter Care Teams Supervisor Motorcycle Repair Shop Relationship Specialty Start Date End Date CristhianCelena [address] [place] [address] PCP - General Internal Medicine 10/28/22 07/26/23 Unknown Unknow Provider Address PCP - General 07/27/23 Carlos Alberto Urias MD [address] [place] [address] Neurology 03/10/19 Jessica Cortez DO [address] [place] [address] Primary BH Attending Psychiatry, General 12/15/19 Stu Erickson MD [address] [place] [address] Medicine Hospitalist 06/19/21 Savita Lyons, RN [address] [place] [address] Registered Nurse Hepatology 06/19/21 Titus Maki LCSW [address] [place] [address] Production Dispatcher Clinical Social Work 11/26/22 Elsa Batista LCSW [address] [place] [address] Production Dispatcher Clinical Social Work 05/16/24 05/16/24 documented as of this encounter
--- OUTSIDE RECORDS SUMMARY | 2024-08-19 10:14 | XMS_ITS | Encounter Summary ---
Author Organization [facility] Address [address] [place] [address] Care Team Providers Care Medical Records Field Technician Name Role Phone Jaydon Bowen MD Primary Care Provider [phone] Neel Randolph MD Primary Care Provider [phone] Hortensia Henry Unavailable [phone] Carlos Alberto Urias MD Unavailable Tracy Gillespie DO Unavailable Unavailable Uma Dorantes MD Unavailable [phone] Tacho Castillo DO Primary Care Provider + [phone] Jessica Cortez DO Unavailable [phone] Kathrine Stephens LPCA Unavailable [phone] Stu Erickson MD Unavailable [phone] Svaita Lyons RN Unavailable [phone] Celena Morrow DO Primary Care Provider [phone] Titus Maki PERFORMING ARTS ROAD MANAGER Unavailable Unknown Primary Care Provider +1-000-000 -0000 Elsa Batista PERFORMING ARTS ROAD MANAGER Unavailable [phone] Encounter Details Date Type Department Care Team (Late st Contact Info) Description 11/17/2018 Scanned Document [facility] [address] [place] [address] [address] [place] [address] Carlos Alberto Urias MD [address] [address] Social History Tobacco Use Types Packs/Day Years Used Date Smoking Tobacco: Former Smokeless Tobacco: Never Alcohol Use Standard Drinks/Week Comments Yes 0 (1 standard drink = 0.6 oz pur e alcohol) Comments Unknown Sex and Gender Information Value [...] on filedocumented in this encounter Care Teams Medical Records Field Technician Relationship Specialty Start Date End Date Jaydon Bowen MD PCP - General Internal Medicine 12/23/18 01/12/19 Neel Randolph MD PCP - General Internal Medicine 01/13/19 10/16/19 Tacho Castillo DO PCP - General Internal Medicine 10/17/19 10/27/22 Celena Morrow DO [address] [place], [place] [id number] PCP - General Internal Medicine 10/28/22 07/26/23 Unknown Unknow Provider Address PCP - General 07/27/23 Hortensia Henry [address] [place] [address] Hazmat Technician 01/31/19 05/04/19 Carlos Alberto Urias MD 85 [address] [place] [address] Neurology 03/10/19 Tracy Gillespie DO Resident Psychiatry, General 03/21/19 03/10/20 Uma Dorantes MD Primary Attending Psychiatry, General 05/05/1902/19 Jessica Cortez DO Primary Attending Psychiatry, General 12/15/19 Kathrine Stephens [facility] Clinician Social Work 12/14/20 04/28/21 Stu Erickson MD [address] [place] [address] Medicine Hospitalist 06/19/21 Savita Lyons, RN 85 [facility] [address] [place] [address] Registered Nurse Hepatology 06/19/21 Titus Maki LCSW [address] [place] [address] Senior Property Accountant Clinical Social Work 11/26/22 Elsa Batista LCSW [address] [place] [address] Senior Property Accountant Clinical Social Work 05/16/24 05/16/24 documented as of this encounter
--- OUTSIDE RECORDS SUMMARY | 2024-08-19 10:14 | XMS_ITS | Clinical Summary ---
Author Organization [facility] Address [address] [place] [address] Care Team Providers Care Tar Worker Name Role Phone Liz Goldberg MD Primary Care Provider [phone] Allergies Active Allergy Reactions Criticality Noted Date Comments Ibuprofen 08/25/2023 Body feels numb when taking, pt is ruling it an allergy Lactose 08/25/2023 Latex 08/25/2023 Penicillin G Anaphylaxis High 08/25/2023 Shellfish-Derived Products 4 Tricyclic Antidepressants Drowsiness Medium 06/03/2024 Medications * This document contains information received from the source organization and may not represent a complete record from that organization. DULoxetine (Cymbalta) [address] capsule Take 40 mg by mouth Once per day. 4 Active topiramate (Topamax) 25 MG tablet Take 1 tablet (25 mg) by mouth at bedtime. 30 tablet 11 5 Active acetaminophen (Tylenol Extra Strength) 500 MG tablet Take 1 tablet (500 mg) by mouth every 8 (eight) hours if needed for moderate pain. 90 tablet 5 08/25/19 25 Active naproxen (Naprosyn) 500 MG tablet Take 1 tablet (500 mg) by mouth with breakfast and with evening meal for 10 days. 20 tablet 5 08/05/19 25 Active Problems Problem Noted Date Diagnosed Date Seizure disorder 06/03/2024 Assessment & Plan (06/03/2024 6:55 AM EST): - DDx: pseudoseizure; migraine with neurological symptoms; conversion - Previously seeing neurologist, including [facility] - Last neurologist [place] - patient had been taking topiramate prescribed by her psychiatrist - resume topiramate - evaluation history: Normal EEG and MRI per [facility] neurology Elevated BP without diagnosis of hypertension Assessment & Plan (06/03/2024 6:35 AM EST): -Goal BP < 140/90 per JNC-8 and < 130/80 per ACC/AHA guideline (Treatment threshold >=140/90) -DBP is elevated -Continue working on lifestyle modifications -Recommended self-monitoring BP. -Consider re-ordering sleep study Mood disorder 06/02/2024 Assessment & Plan (06/03/2024 6:44 AM EST): - PHQ9 score 15; SIDDHARTHA 7 score 15 - Current Dx: anxiety and depression - Differential Dx: ADD; bipolar (less likely) - Patient has been treated for depression in the past and was seeing a psychiatrist [place] - She was being prescribed topiramate and duloexetine (Cymbalta) by her psychiatrist - She states she has not been consistent in taking duloexetine (Cymbalta) because she perceives that her symptoms are not due to depression or anxiety; rather, patient perceives that her depression and anxiety are due to headache and seizure. She perceives that her headache and seizure are inadequately evaluated and treated. - Treatment history: She has tried TCA for headache and developed side effects - she may benefit from chronic pain group - Referred to behavioral health Headache 03/12/2022 Overview (06/01/2024): 37-year-old female with [...] head CT done prior to return visit. Assessment & Plan (06/03/2024 6:33 AM EST): - previously evaluated by neurologist, including [facility]. - more recent neurology notes are not available - according to [facility] neurology provider note, she had normal MRI and AEEG. Failed TCA trial due to side effects. Rx topiramate. - restart topiramate 25 mg at bedtime - patient agreed to sign medical release at [facility] today so that we can obtain notes from her last neurologist [place]. Gastroesophageal reflux 06/11/2021 Hepatic lesion 06/11/2021 Metabolic dysfunction-associ ated steatotic liver disease (MASLD) 06/11/2021 Assessment & Plan (06/03/2024 6:37 AM EST): - Last liver test: Ordered on 06/02/24 - Last US / elastography: Ordered - FIB4 index : Needs CBC - GI: None at this time - continue working on lifestyle modifications - continue surveillance study Major depressive disorder 04/04/2020 Assessment & Plan (06/03/2024 6:45 AM EST): - PHQ9 score 15 on 06/01/24 - encouraged to improve adherence to duloexetine (Cymbalta) - Referred to behavioral health Generalized anxiety disorder 02/09/2020 Assessment & Plan (06/03/2024 6:51 AM EST): - GAD7 score 15 - Referred to behavioral health Conversion disorder 12/15/2018 Assessment & Plan (06/03/2024 6:53 AM EST): - previous Dx - patient states she has been diagnosed with and treated for seizure. We have neurology notes documenting normal EEG and MRI. - pseudoseizure? - obtaining records from patient's neurologist Encounters * This document contains information received from the source organization and may not represent a complete record from that organization. Date Type Department Care Team Description 08/18/2024 Telephone [facility] [place] [address] Liz Goldberg MD august recall 08/04/2024 Telephone [facility] [place] [place] [address] Liz Goldberg MD august recall 07/25/2024 2:40 PM EDT Office Visit [facility] [place] [address] Yusef Avalos MD Chest pain, non-cardiac (Primary Dx); Costochondritis 06/02/2024 9:00 AM EST Office Visit [facility] [place] [address] Liz Goldberg MD Routine general medical examination at a health care facility (Primary Dx); Screening for lipid disorders; Screening for diabetes mellitus; Routine screening for STI (sexually transmitted infection); Metabolic dysfunction-associated steatotic liver disease (MASLD); Elevated BP without diagnosis of hypertension; Dietary counseling; Exercise counseling; Class 1 obesity due to excess calories with serious comorbidity and body mass index (BMI) of 33.0 to 33.9 in adult; Mood disorder (CMS/HCC); Current moderate episode of major depressive disorder, unspecified whether recurrent (CMS/HCC); Generalized anxiety disorder; Chronic nonintractable headache, unspecified headache type; Conversion disorder; Seizure disorder (CMS/HCC); Sleep disturbance 06/02/2024 Orders Only [facility] [place] [address] Liz Goldberg MD Metabolic dysfunction-associated steatotic liver disease (MASLD) (Primary Dx) 06/02/2024 Telephone [facility] [place] [place] [address] Donna Stephens RN Results 06/02/2024 Travel 05/27/2024 Telephone [facility] [address] Nancy Bhat MA chart prep from Last 3 Months Immunizations Name Administration Dates Next Due Tdap 02/14/2020 Social History Tobacco Use Types Packs/Day Years Used Date Smoking Tobacco: Never Smokeless Tobacco: Never Tobacco Cessation:Counseling Given: Not Answered Alcohol Use Standard Drinks/Week Comments Defer 0 (1 standard drink = 0.6 oz pur e alcohol) Depression Answer Date Recorded Patient Health Questionnaire-9 [...] Sign Reading Time Taken Comments Blood Pressure 125/89 07/25/2024 2:31 PM EDT Pulse 104 07/25/2024 2:21 PM EDT Temperature 36.2 ??C (97.2 ??F) 07/25/2024 2:21 PM ED T Respiratory Rate 18 07/25/2024 2:21 PM EDT Oxygen Saturation 98% 07/25/2024 2:21 PM EDT Inhaled Oxygen Concentration - - Weight 71.2 kg (157 lb) 07/25/2024 2:21 PM EDT Height 147 cm (4' 9.87 ) 06/02/2024 9:02 AM EST Body Mass Index 32.96 06/02/2024 9:02 AM EST Plan of Treatment Upcoming Encounters Date Type Department Care Team (Late st Contact Info) Description 10/17/2024 3:15 PM EDT Office Visit [facility] [address], [place] [phone] Liz Goldberg MD [address] [place], [place] [phone] Health Maintenance Due Date Last Done Comments Dental Oral Exam 1986 Dental Prophylaxis 1986 Dental X-Ray: Full Mouth 1986 Hepatitis A Vaccines (1 of 2 - Risk 2-dose series) 2005 Pap Smear 2007 Cervical Cancer Screening 02/04/2016 HPV/Cotest 02/04/2016 COVID-19 Vaccine ( - 2023-2 5 season) 2023 Influenza Vaccine (#1) 2023 Dental X-Ray: Bitewings 08/25/2024 08/25/2023 SDOH Screening 05/19/2025 05/19/2024 Alcohol/Substance Use Screening 06/02/2025 06/02/2024 Depression Screening 06/02/2025 06/02/2024, 06/02/2024 Tobacco Screening 06/02/2025 06/02/2024 Family Planning (PISQ) 06/03/2025 06/03/2024 Lipid Panel 06/02/2029 06/02/2024 DTaP/Tdap/Td Vaccines (2 - T d or Tdap) 02/13/2030 02/14/2020 Zoster Vaccines (1 of 2) 02/04/2036 RSV Patients and Patients Aged 60 years or older (1 - 1-dose 75+ series) 2061 HIV Screening Completed 06/02/2024 Hepatitis C Screening Completed 06/02/2024 , 06/02/2024 HIB Vaccines Aged Out No longer eligi ble based on patient's age to complete this topic HPV Vaccines Aged Out No longer eligi ble based on patient's age to complete this topic Hepatitis B Vaccines Discontinued IPV Vaccines Aged Out No longer eligi ble based on patient's age to complete this topic Meningococcal Vaccine Aged Out No jodi arline eligible based on patient's age to complete this topic Pneumococcal Vaccine: Pediatrics (0 to 5 Years) and At-Risk Patients (6 to 49) Years) Aged Out No longer eligible based on patient's age to complete this topic RSV under 20 months Aged Out No longe r eligible based on patient's age to complete this topic Rotavirus Vaccines Aged Out No longer eligible based on patient's age to complete this topic Procedures Procedure Name Priority Date/Time Associated Diagnosis Comments ECG 12-LEAD Routine 07/25/2024 2:37 PM EDT Chest pain, non-cardiac Costochondritis HEPATITIS C VIRAL RNA, QUANTITATIVE, REAL-TIME PCR Routine 06/02/2024 9:46 AM EST Metabolic dysfunction-associa vinh steatotic liver disease (MASLD) LIPID PANEL WITH REFLEX TO DIRECT LDL Routine 06/02/2024 9:46 AM EST Screening for lipid disorders COMPREHENSIVE METABOLIC PANEL Routine 06/02/2024 9:46 AM EST Metabolic dysfunction-associa ivnh steatotic liver disease (MASLD) HEMOGLOBIN A1C Routine 06/02/2024 9:46 AM EST Screening for diabetes mellitus TSH W/REFLEX TO FT4 Routine 06/02/2024 9 :46 AM EST Elevated BP without diagnosis of hypertension Class 1 obesity due to excess calories with serious comorbidity and body mass index (BMI) of 33.0 to 33.9 in adult HEPATITIS B SURFACE ANTIGEN, EIA Routine 06/02/2024 9:46 AM EST Routine screening for STI (sexually transmitted infection) HIV 1/2 ANTIGEN/ANTIBODY, FOURTH GENERATION W/RFL Routine 06/02/2024 9:46 AM EST Routine screening for STI (sexually transmitted infection) HEPATITIS B CORE AB TOTAL Routine 06/02/2024 9:46 AM EST Routine screening for STI (sexually transmitted infection) HEPATITIS B SURFACE ANTIBODY, QUALITATIVE Routine 06/02/2024 9:46 AM EST Routine screening for STI (sexually transmitted infection) HEPATITIS C AB W/REFL TO HCV RNA, QN, PCR Routine 06/02/2024 9:46 AM EST Routine screening for STI (sexually transmitted infection) SYPHILIS SCREEN Routine 06/02/2024 9:46 AM EST Routine screening for STI (sexually transmitted infection) BITEWING - SINGLE RADIOGRAPHIC IMAGE Routine 08/25/2023 2:00 PM EDT from Last 3 Months or Most Recently Relevant to Health Maintenance Results * ECG 12 lead (07/25/2024 2:37 PM EDT) Narrative Name, MD Yusef - 07/25/2024 2:37 PM EDT Sinus tachycardia with HR [address] segment elevation or depression Yusef Avalos MD ECG ORDERABLES Final Result * Syphilis Screen (06/02/2024 9:46 AM EST) Syphilis Screen Nonreactive Nonreactive [facility] Blood 06/02/2024 9:46 AM EST 06/02/2024 11:15 AM EST Liz Goldberg MD LAB BLOOD ORDERABLES Final Resul t [facility] [address] [place] [phone] * TSH with Reflex to Free T4 (06/02/2024 9:46 AM EST) TSH reflex Free T4 3.49 0.32 - 4.0 uIU/mL [facility] Blood 06/02/2024 9:46 AM EST 06/02/2024 11:15 AM EST Liz Goldberg MD LAB BLOOD ORDERABLES Final Resul t Performing Organization Address [facility] de Phone Number [facility] [address] [place] [phone] * (ABNORMAL) Lipid Panel with Reflex to Direct LDL (06/02/2024 9:46 AM EST) Triglycerides 234(H) <150 mg/dL [facility] Comment:Desirable Triglyceri de: less than 150 mg/dLBorderline High Triglyceride 150-199 mg/dLHigh Triglyceride: 200-499 mg/dLVery High Triglyceride: greater than or equal to 5OO mg/dL Cholesterol 204(H) <200 mg/dL [facility] Comment:Desirable Cholestero l: less than 200 mg/dLBorderline High Cholesterol: 200-239 mg/dLHigh Cholesterol: greater than 239 mg/dL LDL Cholesterol Calculated 117(H) <100 mg/dL [facility] Comment:Desirable LDL: less than 100 mg/dLNear Optimal/Above Optimal LDL: 110- 129 mg/dLBorderline High LDL: 130-159 mg/dLHigh LDL: 160-189 mg/dLVery High LDL: greater than or equal to 190 mg/dL HDL Cholesterol 41 >40 mg/dL [facility] Comment:Desirable HDL: great er than 40 mg/dL Note: This HDL assay may give artificially low results in patients with liver disease. Blood 06/02/2024 9:46 AM EST 06/02/2024 11:15 AM EST us Liz Goldberg MD LAB BLOOD ORDERABLES Final Resul t Performing Organization Address [facility] Co de Phone Number [facility] [address] [place] [phone] * Hepatitis C Viral RNA, Quantitative, Real-Time PCR (06/02/2024 9:46 AM EST) Hepatitis C Viral Load <15 NOT DETECTED NOT DETECTED IU/mL [facility] HCV Log PCR <1.18 NOT DETECTED NOT DETECTED Log IU/mL [facility] Comment:For additional infor matflako, please refer tohttp://education.vWise/faq/DWF12x7(This link is being provided for informational/educational purposes only.)THIS TEST WAS PERFORMED AT:[facility] [place] [phone] VÁSQUEZ MD 06/02/2024 9:46 AM EST 06/03/2024 11:56 AM EST Liz Goldberg MD LAB BLOOD ORDERABLES Final Resul t Performing Organization Address City/[facility]/ZIP Co de Phone Number [facility] [address] [place] [phone] * Hepatitis C Antibody with Reflex to HCV, RNA, Quantitative, Real-Time PCR (06/02/2024 9:46 AM EST) Hepatitis C Antibody GRAYZONE Nonreactive [facility] Comment:Antibodies to HCV ma y or may not be present. Suggest repeatanti-HCV in 4-6 weeks and/or HCV viral load if clinicallyindicated. Blood Venous blood specimen / Unknown 06/02/2024 9:46 AM EST 06/02/2024 11:15 AM EST us Liz Goldberg MD LAB BLOOD ORDERABLES Final Resul t Performing Organization Address City/[facility]/ZIP Co de Phone Number [facility] [address] [place] [phone] * Hepatitis B surface antigen, EIA (06/02/2024 9:46 AM EST) Hepatitis B Surface Ag Negative Negative [facility] Blood Venous blood specimen / Unknown 06/02/2024 9:46 AM EST 06/02/2024 11:15 AM EST Liz Goldberg MD LAB BLOOD ORDERABLES Final Resul t Performing Organization Address City/[facility] Co de Phone Number [facility] [address] [place] [phone] * Hepatitis B Core Antibody, Total (06/02/2024 9:46 AM EST) Hepatitis B Core Antibody Nonreactive Nonreactive [facility] Blood Venous blood specimen / Unknown 06/02/2024 9:46 AM EST 06/02/2024 11:15 AM EST us Liz Goldberg MD LAB BLOOD ORDERABLES Final Resul t Performing Organization Address [facility] de Phone Number [facility] [address] [place] [phone] * HIV-1/2 Antigen and Antibodies, Fourth Generation, with Reflexes (06/02/2024 9:46 AM EST) HIV AB/AG Nonreactive Nonreactive [facility] Comment:HIV-1 p24 Ag and/or HIV-1/HIV-2 Ab not detected.A test result that is nonreactive does not exclude thepossibility of exposure to or infection with HIV-1 and/orHIV-2. Nonreactive results in this assay for individualswith prior exposure to HIV-1 and/or HIV-2 may be due toantigen and antibody levels that are below the limit ofdetection of this assay.[facility] HIV Ag/Ab Combo assay result andsupplemental assay results should be interpreted inconjunction with the patient's clinical presentation,history and other laboratory results. If the results areinconsistent with clinical evidence, additional testing issuggested to confirm the result. Blood Venous blood specimen / Unknown 06/02/2024 9:46 AM EST 06/02/2024 11:15 AM EST us Liz Goldberg MD LAB BLOOD ORDERABLES Final Resul t Performing Organization Address [facility] Co de Phone Number [facility] [address] [place] [phone] * Hepatitis B Surface Antibody, Qualitative (06/02/2024 9:46 AM EST) Pathologist [facility] ~Hepatitis B Surface Antibody REACTIVE Nonreactive [facility] Comment:REACTIVE: > 11.99 mI U/mL Blood Venous blood specimen / Unknown 06/02/2024 9:46 AM EST 06/02/2024 11:15 AM EST Liz Goldberg MD LAB BLOOD ORDERABLES Final Resul t Performing Organization Address [facility] Co de Phone Number [facility] [address] [place] [phone] * Hemoglobin A1c (06/02/2024 9:46 AM EST) Pathologist [facility] Hemoglobin A1c 5.4 <6.0 % [facility] Comment:Hemoglobin A1C Refer ence Range Adults: 4.8 - 6.0 % Non diabetic: < 6.0 % Goal: < 7.0 %Additional Action Suggested: > 8.0 %Note: Hemoglobin A1c results are invalid for patients with abnormal amounts of HbF. Blood transfusions may impact the HbA1c concentration in the patient sample. Estimated Average Glucose 108 mg/dL [facility] Comment:eAG = Estimated ave rage glucose which is %A1C expressed asaverage glucose, using the formula of the P2X-QewiwwbUwzlyjw Glucose study (ADAG), Diabetes Care, Vol.31,#8,2007 Blood Venous blood specimen / Unknown 06/02/2024 9:46 AM EST 06/02/2024 11:15 AM EST Liz Goldberg MD LAB BLOOD ORDERABLES Final Resul t Performing Organization Address [facility] Co de Phone Number [facility] [address] [place] [address] [phone] * (ABNORMAL) Comprehensive Metabolic Panel (06/02/2024 9:46 AM EST) Pathologist [facility] Sodium 139 135 - 145 mmol/L [facility] Potassium 3.7 3.3 - 5.1 mmol/L [facility] Chloride 106 96 - 108 mmol/L [facility] Carbon Dioxide 24 22 - 29 mmol/L [facility] Anion Gap 13 12 - 20 [facility] Urea Nitrogen (BUN) 11 9 - 16 mg/dL [facility] Creatinine, Serum 0.77 0.5 - 1.4 mg/dL [facility] Estimated Glomerular Filt Rate >60 [facility] Comment:Chronic Kidney Disea se: Estimated GFR < 60 mL/min/1.12f6Nrgszb Kidney Disease: Estimated GFR < 15 mL/min/1.73m2 Glucose 109 60 - 115 mg/dL [facility] Calcium 9.1 8.4 - 10.2 mg/dL [facility] Bilirubin, Total 0.3 0.0 - 1.0 mg/dL [facility] Aspartate Amino Transferase 44(H) 5 - 31 U/L [facility] Alanine Aminotransferase 39(H) 0 - 31 U/L [facility] Total Protein 7.8 6.5 - 8.0 g/dL [facility] Albumin Level 3.9 3.5 - 5.0 g/dL [facility] Alkaline Phosphatase 89 39 - 117 U/L [facility] Blood Venous blood specimen / Unknown 06/02/2024 9:46 AM EST 06/02/2024 11:15 AM EST us Liz Goldberg MD LAB BLOOD ORDERABLES Final Resul t [facility] [address] [place] [address] [phone] from Last 3 Months Insurance [facility] C3 DENTAL-[facility] MEDICAID STAND ADULT Care Teams Tar Worker Relationship Specialty Start Date End Date Liz Goldberg MD [address] [place] [address] PCP - General Family Medicine 06/02/24
--- OUTSIDE RECORDS SUMMARY | 2024-08-19 10:14 | XMS_ITS | Encounter Summary ---
Author Organization [facility] Address [address] [place] [address] Care Team Providers Care Fur Mixer Name Role Phone Jaydon Bowen MD Primary Care Provider [phone] Neel Randolph MD Primary Care Provider [phone] Hortensia Henry Unavailable [phone] Carlos Alberto Urias MD Unavailable Tracy Gillespie DO Unavailable Unavailable Uma Dorantes MD Unavailable [phone] Tacho Castillo DO Primary Care Provider [phone] Jessica Cortez DO Unavailable [phone] Kathrine Stephens LPCA Unavailable [phone] Stu Erickson MD Unavailable [phone] Savita Lyons RN Unavailable [phone] Celena Morrow DO Primary Care Provider Titus Maki STORE FACILITY TECHNICIAN Unavailable Unknown Primary Care Provider [phone] Elsa Batista STORE FACILITY TECHNICIAN Unavailable [phone] Encounter Details Date Type Department Care Team (Late st Contact Info) Description 06/19/2017 Scanned Document [facility] [address] [place] [address] [address] [place] [address] Carlos Alberto Urias MD [address] [address] Social History Tobacco Use Types Packs/Day Years [...] on filedocumented in this encounter Care Teams Fur Mixer Relationship Specialty Start Date End Date Jaydon Bowen MD PCP - General Internal Medicine 12/23/18 01/12/19 Neel Randolph MD PCP - General Internal Medicine 01/13/19 10/16/19 Tacho Castillo DO PCP - General Internal Medicine 10/17/19 10/27/22 Celena Morrow DO [address] [place] [address] PCP - General Internal Medicine 10/28/22 07/26/23 Unknown Unknow Provider Address PCP - General 07/27/23 Hortensia Henry [address] [place] [phone] Clean Rice Broker 01/31/19 05/04/19 Carlos Alberto Urias MD [address] [address] Neurology 03/10/19 Jose Miguel TracyDO Resident Psychiatry, General 03/21/19 03/10/20 Uma Dorantes MD Primary Attending Psychiatry, General 05/05/1902/19 Jessica Cortez DO Primary Attending Psychiatry, General 12/15/19 Kathrine Stephens [facility] Clinician Social Work 12/14/20 04/28/21 Stu Erickson MD [address] [place] [address] Medicine Hospitalist 06/19/21 Savita Lyons, RN [address] [address] Registered Nurse Hepatology 06/19/21 Titus Maki LCSW [address] [place] [address] Sound Designer Clinical Social Work 11/26/22 Elsa Batista LCSW [address] [place] [id number] Sound Designer Clinical Social Work 05/16/24 05/16/24 documented as of this encounter
--- OUTSIDE RECORDS SUMMARY | 2024-08-19 10:14 | XMS_ITS | Encounter Summary ---
Author Organization Formerly [facility] Address [address] [place] [address] Care Team Providers Care Communicable Disease Specialist Name Role Phone Jaydon Bowen MD Primary Care Provider [phone] Neel Randolph MD Primary Care Provider [phone] Hortensia Henry Unavailable [phone] Carlos Alberto Urias MD Unavailable Tracy Gillespie DO Unavailable Unavailable Uma Dorantes MD Unavailable [phone] Tacho Castillo DO Primary Care Provider + [phone] Jessica Cortez DO Unavailable [phone] Kathrine Stephens LPCA Unavailable [phone] Stu Erickson MD Unavailable [phone] Savita Lyons RN Unavailable [phone] Celena Morrow DO Primary Care Provider Titus Maki STARBUCKS CLERK Unavailable Unknown Primary Care Provider +[phone] -0000 Elsa Batista STARBUCKS CLERK Unavailable [phone] Encounter Details Date Type Department Care Team (Late st Contact Info) Description 11/17/2018 Scanned Document [facility] Special[facility] Clinics [address] [place] [address] [address] [place] [address] Carlos Alberto Urias MD [address] [address] Social History Tobacco Use Types Packs/Day Years [...] on filedocumented in this encounter Care Teams Communicable Disease Specialist Relationship Specialty Start Date End Date Jaydon Bowen MD PCP - General Internal Medicine 12/23/18 01/12/19 Neel Randolph MD PCP - General Internal Medicine 01/13/19 10/16/19 Tacho Castillo DO PCP - General Internal Medicine 10/17/19 10/27/22 Celena Morrow DO [address] [place], [place] [id number] PCP - General Internal Medicine 10/28/22 07/26/23 Unknown Unknow Provider Address PCP - General 07/27/23 Hortensia Henry [address] [place] [address] Brake Lining Maker 01/31/19 05/04/19 Carlos Alberto Urias MD 85 [address] [place] [address] Neurology 03/10/19 Tracy Gillespie DO Resident Psychiatry, General 03/21/19 03/10/20 Uma Dorantes MD Primary Attending Psychiatry, General 05/05/1902/19 Jessica Cortez DO Primary Attending Psychiatry, General 12/15/19 Kathrine Stephens [facility] Clinician Social Work 12/14/20 04/28/21 Stu Erickson MD 80 [place] [address] Medicine Hospitalist 06/19/21 Savita Lyons, RN 85 [facility] [address] [place] [address] Registered Nurse Hepatology 06/19/21 Titus Maki LCSW 100 [place] [address] Section Beamer Clinical Social Work 11/26/22 Elsa Batista LCSW 200 [place] [address] Section Beamer Clinical Social Work 05/16/24 05/16/24 documented as of this encounter
--- OUTSIDE RECORDS SUMMARY | 2024-08-19 10:14 | XMS_ITS | Encounter Summary ---
Author Organization Formerly [facility] Address [address] [place] [address] Care Team Providers Care Parking Lot Manager Name Role Phone Jaydon Bowen MD Primary Care Provider Neel Randolph MD Primary Care Provider [phone] Hortensia Henry Unavailable [phone] Carlos Alberto Urias MD Unavailable Tracy Gillespie DO Unavailable Unavailable Uma Dorantes MD Unavailable [phone] Tacho Castillo DO Primary Care Provider + [phone] Jessica Cortez DO Unavailable [phone] Kathrine Stephens LPCA Unavailable [phone] Stu Erickson MD Unavailable [phone] Savita Lyons RN Unavailable [phone] Celena Morrow DO Primary Care Provider Titus Maki CARDIAC REHABILITATION PROGRAM DIRECTOR Unavailable [phone] Unknown Primary Care Provider +[phone] -0000 Elsa Batista CARDIAC REHABILITATION PROGRAM DIRECTOR Unavailable [phone] Encounter Details Date Type Department Care Team (Late st Contact Info) Description 01/10/2019 Scanned Document [facility] Special[facility] Clin[facility] [address] [place] [address] 5th [place] [address] Bib Peralta MD [address] [place] [id number] Social History Tobacco Use Types Packs/Day Years Used Date Smoking Tobacco: Former Smokeless Tobacco: Never Comments:3-4 cigarettes in a week, quit few months ago Alcohol Use Standard Drinks/Week Comments Yes 0 (1 standard drink = 0.6 oz pur e alcohol) 6 beers/day only on weekend Comments Unknown Sex and Gender Information Value [...] on filedocumented in this encounter Care Teams Parking Lot Manager Relationship Specialty Start Date End Date Jaydon Bowen MD PCP - General Internal Medicine 12/23/18 01/12/19 Neel Randolph MD PCP - General Internal Medicine 01/13/19 10/16/19 Tacho Castillo DO PCP - General Internal Medicine 10/17/19 10/27/22 Celena Morrow DO [address] [place] [address] PCP - General Internal Medicine 10/28/22 07/26/23 Unknown Unknow Provider Address PCP - General 07/27/23 Hortensia Henry [address] [place] [address] Shank Maker 01/31/19 05/04/19 Carlos Alberto Urias MD 85 [facility] [address] [place] [id number] Neurology 03/10/19 Tracy Gillespie DO Resident Psychiatry, General 03/21/19 03/10/20 Uma Dorantes MD Primary Attending Psychiatry, General 05/05/1902/19 Jessica Cortez DO Primary Attending Psychiatry, General 12/15/19 Kathrine Stephens [facility] Clinician Social Work 12/14/20 04/28/21 Stu Erickson MD 80 [place] [address] Medicine Hospitalist 06/19/21 Savita Lyons, RN 85 [facility] [address] [place] [id number] Registered Nurse Hepatology 06/19/21 Titus Maki CARDIAC REHABILITATION PROGRAM DIRECTOR [address] [place], [place] [id number] Help Desk Engineer Clinical Social Work 11/26/22 Elsa Batista LCSW [address] [place] [address] Help Desk Engineer Clinical Social Work 05/16/24 05/16/24 documented as of this encounter
--- OUTSIDE RECORDS SUMMARY | 2024-08-19 10:14 | XMS_ITS | Encounter Summary ---
Author Organization [facility] Address [address] 7t [place] [address] Care Team Providers Care Assessment Nurse Practitioner Name Role Phone Liz Goldberg MD Primary Care Provider [phone] Reason for Visit * Reason Onset Date Comments may recall 08/18/2024 Encounter Details Date Type Department Care Team ([facility] st Contact Info) Description 08/18/2024 Telephone [facility] MED[facility] [address] [place] [address] Liz Goldberg MD [address] [place], [place] [phone] may recall Social History Tobacco Use Types Packs/Day Years Used Date Smoking Tobacco: Never Smokeless Tobacco: Never Alcohol Use Standard Drinks/Week Comments Defer 0 [...] encounter Miscellaneous Notes * Telephone Encounter - Neha Deleon - 08/18/2024 2:40 PM EDT Tc from pt returning phone call. Slots blocked for the author. * Telephone Encounter - Nancy Bhat MA - 08/18/2024 10:33 AM EDT .Telephone call to patient to schedule a recall appointment. No answer, Left voicemail to return call to clinic.. Recall letter sent. Visit type: Office Visit Appointment notes: RV ?seizure / lab Month due: May With: Yusuf Please schedule appointment above if patient returns call documented in this encounter Plan of Treatment Upcoming Encounters Date Type Department Care Team ([facility] st Contact Info) Description 10/17/2024 3:15 PM EDT Office Visit [facility] [address] [place] [address] Liz Goldberg MD 230 [place] [address] documented as of this encounter Visit Diagnoses Not on filedocumented in this encounter Additional Health Concerns Assessment Noted Time PHQ-9 Depression Total Score: 15 025 10:06 AM EST documented as of this encounter Care Teams Assessment Nurse Practitioner Relationship Specialty Start Date End Date Liz Goldberg MD [address] [place] [address] PCP - General Family Medicine 06/02/24 documented as of this encounter
--- OUTSIDE RECORDS SUMMARY | 2024-08-19 10:14 | XMS_ITS | Encounter Summary ---
Author Organization [facility] Address [address] [place] [address] Care Team Providers Care Medical Lab Assistant Name Role Phone Carlos Alberto Urias MD Unavailable CastilloTacho Zhong DO Primary Care Provider [phone] Jessica Cortez DO Unavailable Stu Erickson MD Unavailable [phone] Savita Lyons RN Unavailable [phone] CristhianCelena DO Primary Care Provider [phone] Titus Maki GAME FARM HELPER Unavailable Unknown Primary Care Provider +1-000-000 -0000 Elsa Batista GAME FARM HELPER Unavailable [phone] Encounter Details Date Type Department Care Team (Late st Contact Info) Description 08/13/2021 Prep for Surgery NEPHROLOGY IP [address] [place] [address] Dawood Rose MD 3 [facility] [address] [place], [place] [id number] Social History Tobacco Use Types Packs/Day Years Used Date Smoking Tobacco: Former Cigarettes 0 06/21/2014 - 06/21/2018 Smokeless Tobacco: Never Comments:social smoker with etoh only Alcohol Use Standard Drinks/Week Comments Yes 6 (1 standard drink = 0.6 oz pur e alcohol) only on weekend PHQ-2 Answer Date Recorded PHQ-2 Total Score 3 02/14/2020 Comments No Sex and Gender Information Value Date Recorded Sex Assigned at Female 09/07/2022 6:25 AM EDT Legal Sex Female 12:39 AM EDT Gender Identity Female 09/07/2022 6:25 AM EDT Sexual Orientation Heterosexual (straight) 09/07 6:25 AM EDT COVID-19 Exposure Response Date Recorded In the last month, have you been in contact with someone who was confirmed or suspected to have Coronavirus / COVID-19? No / Unsure 07/30/2021 12:24 PM EDT documented as of this encounter Plan of Treatment Not on file documented as of this encounter Visit Diagnoses Not on filedocumented in this encounter Care Teams Medical Lab Assistant Relationship Specialty Start Date End Date Tacho Castillo DO [address] [place] [id number] PCP - General Internal Medicine 10/17/19 10/27/22 Celena Morrow DO [address] [place] [address] PCP - General Internal Medicine 10/28/22 07/26/23 Unknown Unknow Provider Address PCP - General 07/27/23 Carlos Alberto Urias MD [address] [address] Neurology 03/10/19 Jessica Cortez DO [address] [address] Primary BH Attending Psychiatry, General 12/15/19 Stu Erickson MD 80 [place] [address] Medicine Hospitalist 06/19/21 Savita Lyons, RN [address] [address] Registered Nurse Hepatology 06/19/21 Ttius Maki LCSW [address] [place] [address] Talent Consultant Clinical Social Work 11/26/22 Elsa Batista LCSW [address] [place], [place] [phone] Talent Consultant Clinical Social Work 05/16/24 05/16/24 documented as of this encounter
--- OUTSIDE RECORDS SUMMARY | 2024-08-19 10:14 | XMS_ITS | Encounter Summary ---
Author Organization [facility] Address [address] [place] [address] Care Team Providers Care Blocker Polishing Name Role Phone Jaydon Bowen MD Primary Care Provider [phone] Neel Randolph MD Primary Care Provider [phone] Hortensia Henry Unavailable [phone] Carlos Alberto Urias MD Unavailable Tracy Gillespie DO Unavailable Unavailable Uma Dorantes MD Unavailable [phone] Tacho Castillo DO Primary Care Provider + [phone] Jessica Cortez DO Unavailable [phone] Kathrine Stephens LPCA Unavailable [phone] Stu Erickson MD Unavailable [phone] Savita Lyons RN Unavailable [phone] Celena Morrow DO Primary Care Provider Titus Maki MANAGER ENVIRONMENTAL SERVICES Unavailable Unknown Primary Care Provider +1-000-000 -0000 Elsa Batista MANAGER ENVIRONMENTAL SERVICES Unavailable [phone] Encounter Details Date Type Department Care Team (Late st Contact Info) Description 06/12/2016 Scanned Document [facility] Specialty Clinics [address] [place] [address] 5th [place] [address] Carlos Alberto Urias MD [address] [address] Social History Tobacco Use Types Packs/Day Years [...] on filedocumented in this encounter Care Teams Blocker Polishing Relationship Specialty Start Date End Date Jaydon Bowen MD PCP - General Internal Medicine 12/23/18 01/12/19 Neel Randolph MD PCP - General Internal Medicine 01/13/19 10/16/19 Tacho Castillo DO PCP - General Internal Medicine 10/17/19 10/27/22 Celena Morrow DO [address] [place] [address] PCP - General Internal Medicine 10/28/22 07/26/23 Unknown Unknow Provider Address PCP - General 07/27/23 Hortensia Henry [address] [place] [address] Import/Export Clerk 01/31/19 05/04/19 Carlos Alberto Urias MD [address] [address] Neurology 03/10/19 Jose Miguel TracyDO Resident Psychiatry, General 03/21/19 03/10/20 Uma Dorantes MD Primary Attending Psychiatry, General 05/05/1902/19 Jessica Cortez DO Primary Attending Psychiatry, General 12/15/19 Kathrine Stephens [facility] Clinician Social Work 12/14/20 04/28/21 Stu Erickson MD 80 [place] [address] Medicine Hospitalist 06/19/21 Savita Lyons, RN [address] [address] Registered Nurse Hepatology 06/19/21 Titus Maki LCSW [address] [place] [address] Color Television Console Monitor Clinical Social Work 11/26/22 Elsa Batista LCSW [address] [place] [address] Color Television Console Monitor Clinical Social Work 05/16/24 05/16/24 documented as of this encounter
--- OUTSIDE RECORDS SUMMARY | 2024-08-19 10:15 | XMS_ITS | Encounter Summary ---
Author Organization [facility] Address [address] [facility] 7t [place] [address] Care Team Providers Care White Sidewall Tire Buffer Name Role Phone Liz Goldberg MD Primary Care Provider [phone] Reason for Referral * Imaging (Routine) - Authorized Specialty Diagnoses / Procedures Referred By Contpeter t Referred To Contact Radiology Diagnoses Metabolic dysfunction-associated steatotic liver disease (MASLD) Procedures US Abdomen Comp w elastography Liz Goldberg MD [address] [place] [address] Phone: tel: fax: [address] Phone: tel: fax: Referral ID Status Reason Start Date Expiration Date V isits Requested Visits Authorized [id number] Authorized 06/02/2024 06/02/2025 1 1 Encounter Details Date Type Department Care Team (Late st Contact Info) Description 06/02/2024 Orders Only [facility] MEDICINE [address] [place] [address] Liz Goldberg MD [address] [place], [place] [phone] Metabolic dysfunction-associated steatotic liver disease (MASLD) (Primary Dx) Social History Tobacco Use Types Packs/Day Years [...] as of this encounter Plan of Treatment Upcoming Encounters Date Type Department Care Team (Late st Contact Info) Description 10/17/2024 3:15 PM EDT Office Visit [facility] MEDICINE [address] [place] [address] Liz Goldberg MD [address] [place] [address] Scheduled Orders Name Type Priority Associated Diagnoses Orde r Schedule US Abdomen Comp w elastography Imaging Routine Metabolic dysfunction-associated steatotic liver disease (MASLD) Expected: 06/02/2024, Expires: 06/02/2025 documented as of this encounter Procedures Procedure Name Priority Date/Time Associated Diagnosis Comments HEPATITIS C VIRAL RNA, QUANTITATIVE, REAL-TIME PCR Routine 06/02/2024 9:46 AM EST Metabolic dysfunction-associa vinh steatotic liver disease (MASLD) documented in this encounter Results * Hepatitis C Viral RNA, Quantitative, Real-Time PCR (06/02/2024 9:46 AM EST) Hepatitis C Viral Load <15 NOT DETECTED NOT DETECTED IU/mL [facility] HCV Log PCR <1.18 NOT DETECTED NOT DETECTED Log IU/mL [facility] Comment:For additional infor matflako, please refer tohttp://education.PATHEOS/faq/ROR33a8(This link is being provided for informational/educational purposes only.)THIS TEST WAS PERFORMED AT:[facility] [place] [phone] VÁSQUEZ MD 06/02/2024 9:46 AM EST 06/03/2024 11:56 AM EST Liz Goldberg MD LAB BLOOD ORDERABLES Final Resul t [facility] [address] [place] [address] [phone] documented in this encounter Visit Diagnoses Diagnosis Metabolic dysfunction-associated steatotic liver disease (MASLD)- Primary documented in this encounter Additional Health Concerns Assessment Noted Time PHQ-9 Depression Total Score: 15 025 10:06 AM EST documented as of this encounter Care Teams White Sidewall Tire Buffer Relationship Specialty Start Date End Date Liz Goldberg MD [address] [place] [address] PCP - General Family Medicine 06/02/24 documented as of this encounter
--- OUTSIDE RECORDS SUMMARY | 2024-08-19 10:15 | XMS_ITS | Encounter Summary ---
Author Organization Formerly [facility] Address [address] [place] [address] Care Team Providers Care Business Owner/Engineer Name Role Phone Carlos Alberto Urisa MD Unavailable CastilloTacho Zhong DO Primary Care Provider [phone] Jessica Cortez DO Unavailable Stu Erickson MD Unavailable [phone] Savita Lyons RN Unavailable [phone] Celena Morrow DO Primary Care Provider Titus Maki MED CARE MANAGER Unavailable Unknown Primary Care Provider +1-000-000 -0000 Elsa Batista MED CARE MANAGER Unavailable [phone] Encounter Details Date Type Department Care Team (Late st Contact Info) Description 06/19/2021 Telephone [facility] [address] [facility] [address] [place] [address] Kristy Candelaria MA [address] [facility] Niranjan [address] [place] [address] Social History Tobacco Use Types Packs/Day Years Used Date Smoking Tobacco: Former Cigarettes Q uit: 06/21/2018 Smokeless Tobacco: Never Comments:quit since 2019 Alcohol Use Standard Drinks/Week Comments Yes 6 [...] have Coronavirus / COVID-19? No / Unsure 06/11/2021 2:05 PM EST documented as of this encounter Miscellaneous Notes * Telephone Encounter - Kristy Candelaria - 06/24/2021 3:09 PM EST Patient scheduled for with RUBBER DOWN. Informed to be npo. * Telephone Encounter - Shara Dow APRN - 06/19/2021 12:12 PM EST Records reviewed. Referred for fatty liver/liver lesion. Okay to schedule with me. NPO for [employer]. Thanks * Telephone Encounter - Kristy Candelaria - 06/19/2021 9:59 AM EST New patient records received. Transcribe order completed. Care Team added. Records are available inEpic. please advise documented in this encounter Plan of Treatment Not on file documented as of this encounter Visit Diagnoses Not on filedocumented in this encounter Care Teams Business Owner/Engineer Relationship Specialty Start Date End Date Tacho Castillo DO [address] [address] PCP - General Internal Medicine 10/17/19 10/27/22 Celena Morrow DO [address] [place] [address] PCP - General Internal Medicine 10/28/22 07/26/23 Unknown Unknow Provider Address PCP - General 07/27/23 Carlos Alberto Urias MD [address] [address] Neurology 03/10/19 Jessica Cortez DO [address] [place] [address] Primary BH Attending Psychiatry, General 12/15/19 Stu Erickson MD 80 [place] [address] Medicine Hospitalist 06/19/21 Savita Lyons, RN [address] [address] Registered Nurse Hepatology 06/19/21 Titus Maki LCSW [address] [place] [address] Apartment House Manager Clinical Social Work 11/26/22 Elsa Batista LCSW [address] [place] [address] Apartment House Manager Clinical Social Work 05/16/24 05/16/24 documented as of this encounter
== END 2024-08-19 09:28 | disposition home or self-care (01) ==
LOC: HO.US 09:27
PROVIDERS: PCP Family Medicine; Visit Provider Family Medicine
DX: K76.0 Fatty (change of) liver, not elsewhere classified (principal)
CPT/HCPCS: 76700; 76981

== ENCOUNTER → 2024-08-19 09:29 | Outpatient (BNV) | payer MEDICAID, SELFPAY | PROVIDERS: PCP Family Medicine; Visit Provider Radiology Diagnostic Radiology | DX: K76.0 Fatty (change of) liver, not elsewhere classified (principal) | CPT/HCPCS: 76700; 76981 ==

== ENCOUNTER 2024-10-27 16:07 | Outpatient (REF) | payer MEDICAID, SELFPAY ==
--- NOTE | ~2024-10-27 | CT_ITS ---
CLINICAL HISTORY: headache, seizure CT head without contrast Comparison: None provided Findings: No intra-axial mass, midline shift, hydrocephalus, or acute hemorrhage. No significant atrophy-like change or white matter disease. There is no sinus or mastoid fluid. The orbits are unremarkable. No skull fracture. IMPRESSION: 1. No acute intracranial findings. This document has been electronically signed by: Calvin Cosby MD, PHD on 10/30/2024 23:07:22
== END 2024-10-27 16:08 | disposition home or self-care (01) ==
LOC: HO.CT 16:07
PROVIDERS: PCP Family Medicine; Visit Provider Family Medicine
DX: R51.9 Headache, unspecified (principal); G89.29 Other chronic pain; G40.909 Epilepsy, unspecified, not intractable, without status epilepticus
CPT/HCPCS: 70450

== ENCOUNTER → 2024-10-27 16:08 | Outpatient (BNV) | payer MEDICAID, SELFPAY | PROVIDERS: PCP Family Medicine; Visit Provider General Practice | DX: R51.9 Headache, unspecified (principal); R56.9 Unspecified convulsions | CPT/HCPCS: 70450 ==

== ENCOUNTER 2025-01-04 09:18 | Outpatient (REF) | payer MEDICAID, SELFPAY ==
--- OUTSIDE RECORDS SUMMARY | 2025-01-03 17:40 | XMS_ITS | Encounter Summary ---
Author Organization [employer] Address [address] 7t [place] [address] Care Team Providers Care Lab Pack Chemist Name Role Phone Liz Goldberg MD Primary Care Provider [phone] Reason for Visit * Reason Comments Knee Pain Encounter Details Date Type Department Care Team (Late st Contact Info) Description 01/03/2025 5:40 PM EDT Office Visit [facility] [address] [place] [address] Jerson Marquez MD [address] [place] [address] Acute pain of left knee (Primary Dx) Social History Tobacco Use Types [...] Sign Reading Time Taken Comments Blood Pressure 134/94 01/03/2025 5:37 PM EDT Pulse 95 01/03/2025 5:37 PM EDT Temperature 36.2 C (97.1 F) 01/03/2025 5:37 PM EDT Respiratory Rate - - Oxygen Saturation 99% 01/03/2025 5:37 PM EDT Inhaled Oxygen Concentration - - Weight 66.9 kg (147 lb 6.4 oz) 01/03/2025 5:37 P M EDT Height - - Body Mass Index 31.2 10/24/2024 10:05 AM EDT documented in this encounter Progress Notes * Jerson Marquez MD - 01/03/2025 5:40 PM EDT Subjective History was provided by the patient. Antoinette Nieves is a 39 y.o. female who presents for evaluation of left knee pain since yesterday. 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 States she had a seizure episode yesterday. Woke up with couple bruises on her right sami left anterior knee abrasion and swelling. Painful to fully flex at the knee. Able to ambulate and weight bear. Denies any urine incontinence. Allergic to Ibuprofen. Has female partner only. Objective Vitals: 01/03/25 1737 BP: (!) 134/94 BP Location: Right arm Patient Position: Sitting BP Cuff Size: Adult Pulse: 95 Temp: 97.1 ??F (36.2 ??C) TempSrc: Oral SpO2: 99% Weight: 147 lb 6.4 oz (66.9 kg) Physical Exam Vitals reviewed. Constitutional: General: She is not in acute distress. Appearance: Normal appearance. She is not ill-appearing, toxic-appearing or diaphoretic. HENT: Head: Normocephalic and atraumatic. Right Ear: External ear normal. Left Ear: External ear normal. Nose: Nose normal. Mouth/Throat: Pharynx: Oropharynx is clear. Eyes: Extraocular Movements: Extraocular movements intact. Conjunctiva/sclera: Conjunctivae normal. Pulmonary: Effort: Pulmonary effort is normal. Musculoskeletal: General: Swelling and tenderness present. Cervical back: Neck supple. Comments: Left knee with effusion/edema; 2cm x 2cm anterior abrasion over the patellar area; no surrounding erythema; negative anterior/posterior drawer's; negative Deidre's; negative Anna's; novarus/valgus instability; no calf tenderness; no cords; negative Laine's Skin: General: Skin is warm and dry. Findings: Bruising (two ecchymoses on right upper arm; denies tenderness) present. Neurological: General: No focal deficit present. Mental Status: She is alert and oriented to person, place, and time. Psychiatric: Mood and Affect: Mood normal. Behavior: Behavior normal. Antoinette was seen today for knee pain. Diagnoses and all orders for this visit: Acute pain of left knee (Primary) - XR Knee 4+ Views Left; Future Patient presents to [facility] due to left knee pain after an injury Suspect patellar contusion No ligament instability or meniscal signs on clinical exam Small abrasion without evidence of cellulitis Wound care discussed Underlying allergy to NSAIDs Encouraged to check X-ray of the left knee Acetaminophen prn RICE therapy recommended Advised to contact the clinic if persistent symptoms Indications for UC/ER use reviewed documented in this encounter Plan of Treatment Upcoming Encounters Date Type Department Care Team (Late st Contact Info) Description 01/24/2025 3:15 PM EDT Office Visit [facility] [address] [place] [address] Liz Goldberg MD [address] [place] [address] documented as of this encounter Procedures Procedure Name Priority Date/Time Associated Diagnosis Comments XR KNEE 4+ VIEWS LEFT Routine 01/04/2025 9:35 AM EDT Acute pain of left knee documented in this encounter Results * XR Knee 4+ Views Left (01/04/2025 9:35 AM EDT) Anatomical Region Laterality Modality Lower Extremities, Knee Left [facility] 01/04/2025 9:35 AM EDT Narrative 01/04/2025 9:48 AM EDT [address] [address] XRay Report Signed Patient: Antoinette Nieves MR#: [id number] : 1985 Acct:[id number] Age/Sex: 39 / F ADM Date: 01/04/25 [facility] Att[facility] Dr: Liz Goldberg MD Ordering Physician: Jerson Marquez MD Date of Service: 01/04/25 Procedure(s): XR knee LT 4V Accession Number(s): [id number] cc: Jerson Marquez MD; Liz Goldberg MD Reason for Exam: Left anterior knee pain and swelling s/p fall (from a seizure). EXAMINATION: XR KNEE, LEFT CLINICAL INFORMATION: Left anterior knee pain and swelling s/p fall (from a seizure). COMPARISON: None available. TECHNIQUE: Four views of the left knee. FINDINGS: Small amount fluid is present in the suprapatellar pouch. There is no fracture. There is subtle narrowing of the medial joint space. Minute marginal osteophyte is present on the medial tibial plateau. XR/XR knee LT 4V IMPRESSION: Small joint effusion. Mild nonspecific medial joint space narrowing. Electronically signed by: London Mcpherson MD 01/04/2025 09:46 AM EDT Dictated By: London Mcpherson MD Signed By: <Electronically signed by London Mcpherson MD in OV> 01/04/25945 DD/ 4 TD/TT: 01/04/25935 Spooler Operator Automatic: Procedure Note Donotuseinterpreter, Image - 01/04/[address] [address] XRay Report Signed Patient: Olu Nieves#: [id number] : 1985Acct:[id number] Age/Sex: 39 / FADM Date: 01/04/25 Loc: [facility] Attending Dr: Liz Goldberg MD Ordering Physician: Jerson Marquez MD Date of Service: 01/04/25 Procedure(s): XR knee LT 4V Accession Number(s): [id number] cc: Jerson Marquez MD; Liz Goldberg MD Reason for Exam: Left anterior knee pain and swelling s/p fall (from aseizure). EXAMINATION: XR KNEE, LEFT CLINICAL INFORMATION: Left anterior knee pain and swelling s/p fall (from a seizure). COMPARISON: None available. TECHNIQUE: Four views of the left knee. FINDINGS: Small amount fluid is present in the suprapatellar pouch. There is no fracture. There is subtle narrowing of the medial joint space. Minute marginal osteophyte is present on the medial tibial plateau. XR/XR knee LT 4V IMPRESSION: Small joint effusion. Mild nonspecific medial joint space narrowing. Electronically signed by: London Mcpherson MD 01/04/2025 09:46 AM EDT Dictated By: London Mcpherson MD Signed By: <Electronically signed by London Mcpherson MD in OV> 01/04/25945 DD/ 4 TD/TT: 01/04/25935 Spooler Operator Automatic: Jerson Marquez MD IMG XR PROCEDURES Edited Result - Final documented in this encounter Visit Diagnoses Diagnosis Acute pain of left knee- Primary documented in this encounter Additional Health Concerns Assessment Noted Time PHQ-9 Depression Total Score: 15 06/02/2 025 10:06 AM EST documented as of this encounter Care Teams Lab Pack Chemist Relationship Specialty Start Date End Date Liz Goldberg MD [address] [place] [address] PCP - General Family Medicine 06/02/24 documented as of this encounter
--- NOTE | ~2025-01-04 | XR_ITS ---
EXAMINATION: XR KNEE, LEFT CLINICAL INFORMATION: Left anterior knee pain and swelling s/p fall (from a seizure). COMPARISON: None available. TECHNIQUE: Four views of the left knee. FINDINGS: Small amount fluid is present in the suprapatellar pouch. There is no fracture. There is subtle narrowing of the medial joint space. Minute marginal osteophyte is present on the medial tibial plateau. XR/XR knee LT 4V IMPRESSION: Small joint effusion. Mild nonspecific medial joint space narrowing. Electronically signed by: London Mcpherson MD 01/04/2025 09:46 AM EDT
--- OUTSIDE RECORDS SUMMARY | 2025-01-04 10:55 | XMS_ITS | Encounter Summary ---
Author Organization [facility] Address [address] [place] [address] Care Team Providers Care Hris Specialist Name Role Phone Jaydon Bowen MD Primary Care Provider [phone] Neel Randolph MD Primary Care Provider [phone] Hortensia Henry Unavailable [phone] Carlos Alberto Urias MD Unavailable Tracy Gillespie DO Unavailable Unavailable Uma Dorantes MD Unavailable [phone] Tacho Castillo DO Primary Care Provider + [phone] Jessica Cortez DO Unavailable [phone] Kathrine Stephens LPCA Unavailable [phone] Stu Erickson MD Unavailable [phone] Savita Lyons RN Unavailable [phone] Celena Morrow DO Primary Care Provider [phone] Titus Maki HIGH DENSITY TALC COATER OPERATOR Unavailable [phone] Unknown Primary Care Provider +[phone] -0000 Elsa Batista HIGH DENSITY TALC COATER OPERATOR Unavailable [phone] Encounter Details Date Type Department Care Team (Late st Contact Info) Description 07/10/2016 Scanned Document [facility] [address] [place] [address] 5th [place] [address] Carlos Alberto Urias MD [address] [place] [address] [place] [id number] Social History Tobacco Use Types Packs/Day Years [...] on filedocumented in this encounter Care Teams Hris Specialist Relationship Specialty Start Date End Date Jaydon Bowen MD PCP - General Internal Medicine 12/23/18 01/12/19 Neel Randolph MD PCP - General Internal Medicine 01/13/19 10/16/19 Tacho Castillo DO PCP - General Internal Medicine 10/17/19 10/27/22 Celena Morrow DO [address] [place] [address] [address] [place] [address] PCP - General Internal Medicine 10/28/22 07/26/23 Unknown Unknow Provider Address PCP - General 07/27/23 Hortensia Henry [address] [place] [address] Medical Office Scheduler 01/31/19 05/04/19 Carlos Alberto Urias MD [address] [place], [place] [phone] Neurology 03/10/19 Tracy Gillespie DO Resident Psychiatry, General 03/21/19 03/10/20 Uma Dorantes MD Primary Attending Psychiatry, General 05/05/1902/19 Jessica Cortez DO Primary Attending Psychiatry, General 12/15/[address] [facility] Clinician Social Work 12/14/20 04/28/21 Stu Erickson MD [address] [place], [place] [id number] Medicine Hospitalist 06/19/21 Savita Lyons RN [address] [place] [phone] Registered Nurse Hepatology 06/19/21 Titus Maki LCSW [address] [place] [address] Hplc Chemist Clinical Social Work 11/26/22 Elsa Batista LCSW [address] [place] [address] Hplc Chemist Clinical Social Work 05/16/24 05/16/24 documented as of this encounter
--- OUTSIDE RECORDS SUMMARY | 2025-01-04 10:55 | XMS_ITS | Encounter Summary ---
Author Organization [employer] Address [address] [facility] 7t [place] [address] Care Team Providers Care Elevator Constructor Helper Name Role Phone Liz Goldberg MD Primary Care Provider [phone] Encounter Details Date Type Department Care Team (Latest Contact Info) Description 01/03/2025 Travel Social History Tobacco Use Types Packs/Day [...] your housing situation today? I have anastacia candida 05/19/[address] you li [...] Description 01/24/2025 3:15 PM EDT Office Visit [facility] [address] [place] [address] Liz Goldberg MD [address] [place] [address] documented as of this encounter Visit Diagnoses Not on filedocumented in this encounter Additional Health Concerns Assessment Noted Time PHQ-9 Depression Total Score: 15 025 10:06 AM EST documented as of this encounter Care Teams Elevator Constructor Helper Relationship Specialty Start Date End Date Liz Goldberg MD [address] [place] [address] PCP - General Family Medicine 06/02/24 documented as of this encounter
--- OUTSIDE RECORDS SUMMARY | 2025-01-04 10:55 | XMS_ITS | Encounter Summary ---
Author Organization [facility] Address [address] [place] [address] Care Team Providers Care Manager Spring Name Role Phone Jaydon Bowen MD Primary Care Provider [phone] Neel Randolph MD Primary Care Provider [phone] Hortensia Henry Unavailable [phone] Carlos Alberto Urias MD Unavailable Tracy Gillespie DO Unavailable Unavailable Uma Dorantes MD Unavailable [phone] Tacho Castillo DO Primary Care Provider + [phone] Jessica Cortez DO Unavailable [phone] Kathrine Stephens LPCA Unavailable [phone] Stu Erickson MD Unavailable [phone] Savita Lyons RN Unavailable [phone] Celena Morrow DO Primary Care Provider [phone] Titus Maki BOATING SAFETY OFFICER Unavailable Unknown Primary Care Provider +1-000-000 -0000 Elsa Batista BOATING SAFETY OFFICER Unavailable [phone] Encounter Details Date Type Department Care Team (Late st Contact Info) Description 06/12/2016 Scanned Document [facility] [address] [place] [address] 5th [place] [address] Carlos Alberto Urias MD [address] [address] [place] [phone] Social History Tobacco Use Types Packs/Day Years [...] on filedocumented in this encounter Care Teams Manager Spring Relationship Specialty Start Date End Date Jaydon Bowen MD PCP - General Internal Medicine 12/23/18 01/12/19 Neel Randolph MD PCP - General Internal Medicine 01/13/19 10/16/19 Tacho Castillo DO PCP - General Internal Medicine 10/17/19 10/27/22 Celena Morrow DO [address] [place] [address] [address] [place] [address] PCP - General Internal Medicine 10/28/22 07/26/23 Unknown Unknow Provider Address PCP - General 07/27/23 Hortensia Henry [address] [place] [address] [address] [address] [place] [address] Law Clerk 01/31/19 05/04/19 Carlos Alberto Urias MD [address] [place], [place] [phone] Neurology 03/10/19 Tracy Gillespie DO Resident Psychiatry, General 03/21/19 03/10/20 Uma Dorantes MD Primary Attending Psychiatry, General 05/05/1902/19 Jessica Cortez DO Primary Attending Psychiatry, General 12/15/19 Kathrine Stephens [facility] Clinician Social Work 12/14/20 04/28/21 Stu Erickson MD [address] [place], [place] [phone] Medicine Hospitalist 06/19/21 Savita Lyons RN [address] [place] [phone] Registered Nurse Hepatology 06/19/21 Titus Maki LCSW [address] [place] [address] Brands Editor Clinical Social Work 11/26/22 Elsa Batista LCSW [address] [place] [address] Brands Editor Clinical Social Work 05/16/24 05/16/24 documented as of this encounter
--- OUTSIDE RECORDS SUMMARY | 2025-01-04 10:55 | XMS_ITS | Encounter Summary ---
Author Organization [facility] Address [address] [place] [address] Care Team Providers Care Box Blank Machine Operator Helper Name Role Phone Jaydon Bowen MD Primary Care Provider Neel Randolph MD Primary Care Provider [phone] Hortensia Henry Unavailable [phone] Carlos Alberto Urias MD Unavailable Tracy Gillespie DO Unavailable Unavailable Uma Dorantes MD Unavailable [phone] Tacho Castillo DO Primary Care Provider + [phone] Jessica Cortez DO Unavailable [phone] Kathrine Stephens LPCA Unavailable [phone] Stu Erickson MD Unavailable [phone] Savita Lyons RN Unavailable [phone] Celena Morrow DO Primary Care Provider [phone] Titus Maki TOOL DESIGN ENGINEER Unavailable Unknown Primary Care Provider +1-000-000 -0000 Elsa Batista TOOL DESIGN ENGINEER Unavailable [phone] Encounter Details Date Type Department Care Team (Late st Contact Info) Description 11/17/2018 Scanned Document [facility] [address] [place] [address] 5th [place] [address] Carlos Alberto Urias MD 85 [facility] [address] [place] [address] Social History Tobacco Use Types Packs/Day Years [...] on filedocumented in this encounter Care Teams Box Blank Machine Operator Helper Relationship Specialty Start Date End Date Jaydon Bowen MD PCP - General Internal Medicine 12/23/18 01/12/19 Neel Randolph MD PCP - General Internal Medicine 01/13/19 10/16/19 Tacho Castillo DO PCP - General Internal Medicine 10/17/19 10/27/22 Celena Morrow DO 85 [facility] [address] [place] [address] PCP - General Internal Medicine 10/28/22 07/26/23 Unknown Unknow Provider Address PCP - General 07/27/23 Hortensia Henry [address] [place] [address] Gaming Commissioner 01/31/19 05/04/19 Carlos Alberto Urias MD 85 [facility] [address] [place] [phone] Neurology 03/10/19 Tracy Gillespie DO Resident Psychiatry, General 03/21/19 03/10/20 Uma Dorantes MD Primary Attending Psychiatry, General 05/05/1902/19 Jessica Cortez DO Primary Attending Psychiatry, General 12/15/19 Kathrine Stephens [facility] Clinician Social Work 12/14/20 04/28/21 Stu Erickson MD [address] [place] [address] Medicine Hospitalist 06/19/21 Savita Lyons, RN 85 [facility] [address] [place] [address] Registered Nurse Hepatology 06/19/21 Titus Maki LCSW [address] [place], [place] [phone] Rolled Oats Mill Operator Clinical Social Work 11/26/22 Elsa Batista LCSW [address] [place], [place] [phone] Rolled Oats Mill Operator Clinical Social Work 05/16/24 05/16/24 documented as of this encounter
--- OUTSIDE RECORDS SUMMARY | 2025-01-04 10:55 | XMS_ITS | Encounter Summary ---
Author Organization [facility] Address [address] [place] [address] Care Team Providers Care Acquisition Editor Name Role Phone Jaydon Bowen MD Primary Care Provider Neel Randolph MD Primary Care Provider [phone] Hortensia Henry Unavailable [phone] Carlos Alberto Urias MD Unavailable Tracy Gillespie DO Unavailable Unavailable Uma Dorantes MD Unavailable [phone] Tacho Castillo DO Primary Care Provider + [phone] Jessica Cortez DO Unavailable [phone] Kathrine Stephens LPCA Unavailable [phone] Stu Erickson MD Unavailable [phone] Savita Lyons RN Unavailable [phone] Celena Morrow DO Primary Care Provider [phone] Titus Maki BIT SHARPENER Unavailable [phone] Unknown Primary Care Provider +1-000-000 -0000 Elsa Batista BIT SHARPENER Unavailable [phone] Encounter Details Date Type Department Care Team (Late st Contact Info) Description 11/17/2018 Scanned Document [facility] Special[facility] Clin[facility] [address] [place] [address] 5th [place] [address] Carlos Alberto Urias MD 85 [facility] [address] [place] [address] Social History Tobacco Use Types Packs/Day Years [...] on filedocumented in this encounter Care Teams Acquisition Editor Relationship Specialty Start Date End Date Jaydon Bowen MD PCP - General Internal Medicine 12/23/18 01/12/19 Neel Randolph MD PCP - General Internal Medicine 01/13/19 10/16/19 Tacoh Castillo DO PCP - General Internal Medicine 10/17/19 10/27/22 Celena Morrow DO 85 [facility] [address] [place] [address] PCP - General Internal Medicine 10/28/22 07/26/23 Unknown Unknow Provider Address PCP - General 07/27/23 Hortensia Henry [address] [place] [address] Counter Sales Representative 01/31/19 05/04/19 Carlos Alberto Urias MD 85 [facility] [address] [place] [phone] Neurology 03/10/19 Tracy Gillespie DO Resident Psychiatry, General 03/21/19 03/10/20 Uma Dorantes MD Primary Attending Psychiatry, General 05/05/1902/19 Jessica Cortez DO Primary Attending Psychiatry, General 12/15/19 Kathrine Stephens [facility] Clinician Social Work 12/14/20 04/28/21 Stu Erickson MD [address] [place] [address] Medicine Hospitalist 06/19/21 Savita Lyons, RN [address] [facility] [address] [place] [address] Registered Nurse Hepatology 06/19/21 Titus Maki LCSW [address] [place], [place] [phone] Draw Furnace Tender Clinical Social Work 11/26/22 Elsa Batista LCSW [address] [place], [place] [phone] Draw Furnace Tender Clinical Social Work 05/16/24 05/16/24 documented as of this encounter
--- OUTSIDE RECORDS SUMMARY | 2025-01-04 10:55 | XMS_ITS | Encounter Summary ---
Author Organization [facility] Address [address] [place] [address] Care Team Providers Care Automotive Machinist Apprentice Name Role Phone Jaydon Bowen MD Primary Care Provider Neel Randolph MD Primary Care Provider [phone] Hortensia Henry Unavailable [phone] Carlos Alberto Urias MD Unavailable Tracy Gillespie DO Unavailable Unavailable Uma Dorantes MD Unavailable [phone] Tacho Castillo DO Primary Care Provider + [phone] Jessica Cortez DO Unavailable [phone] Kathrine Stephens LPCA Unavailable [phone] Stu Erickson MD Unavailable [phone] Savita Lyons RN Unavailable [phone] Celena Morrow DO Primary Care Provider [phone] Titus Maki RAIL DETECTOR CAR OPERATOR Unavailable Unknown Primary Care Provider +1-000-000 -0000 Elsa Batista RAIL DETECTOR CAR OPERATOR Unavailable [phone] Encounter Details Date Type Department Care Team (Late st Contact Info) Description 11/11/2016 Scanned Document [facility] Special[facility] Clin[facility] [address] [place] [address] 5th [place] [address] Carlos Alberto Urias MD [address] [place] [phone] [place] [phone] Social History Tobacco Use Types Packs/Day Years [...] on filedocumented in this encounter Care Teams Automotive Machinist Apprentice Relationship Specialty Start Date End Date Jaydon Bowen MD PCP - General Internal Medicine 12/23/18 01/12/19 Neel Randolph MD PCP - General Internal Medicine 01/13/19 10/16/19 Tacho Castillo DO PCP - General Internal Medicine 10/17/19 10/27/22 Celena Morrow DO [address] [place] [address] [address] [place] [address] PCP - General Internal Medicine 10/28/22 07/26/23 Unknown Unknow Provider Address PCP - General 07/27/23 Hortensia Henry [address] [place] [address] Lithographic Platemaker 01/31/19 05/04/19 Carlos Alberto Urias MD [address] [place], [place] [phone] Neurology 03/10/19 Tracy Gillespie DO Resident Psychiatry, General 03/21/19 03/10/20 Uma Dorantes MD Primary Attending Psychiatry, General 05/05/1902/19 Jessica Cortez DO Primary Attending Psychiatry, General 12/15/19 Kathrine Stephens [facility] Clinician Social Work 12/14/20 04/28/21 Stu Erickson MD [address] [place], [place] [phone] Medicine Hospitalist 06/19/21 Savita Lyons RN [address] [place] [phone] Registered Nurse Hepatology 06/19/21 Titus Maki LCSW [address] [place] [address] Compliance Analyst Clinical Social Work 11/26/22 Elsa Batista LCSW [address] [place] [address] Compliance Analyst Clinical Social Work 05/16/24 05/16/24 documented as of this encounter
--- OUTSIDE RECORDS SUMMARY | 2025-01-04 10:55 | XMS_ITS | Encounter Summary ---
Author Organization [employer] Address [address] [facility] [address] 7t [place] [address] Care Team Providers Care Automatic Teller Machine Servicer Name Role Phone Liz Goldberg MD Primary Care Provider [phone] Encounter Details Date Type Department Care Team (Late st Contact Info) Description 10/31/2024 Results Follow-Up [facility] [address] [place] [address] Liz Goldberg MD [address] [place], [place] [phone] [place] Head w/o Contrast Social History Tobacco Use Types Packs/Day Years [...] Description 01/24/2025 3:15 PM EDT Office Visit [facility] [address] [place] [address] Liz Goldberg MD [address] [place] [address] documented as of this encounter Visit Diagnoses Not on filedocumented in this encounter Additional Health Concerns Assessment Noted Time PHQ-9 Depression Total Score: 15 025 10:06 AM EST documented as of this encounter Care Teams Automatic Teller Machine Servicer Relationship Specialty Start Date End Date Liz Goldberg MD [address] [place] [address] PCP - General Family Medicine 06/02/24 documented as of this encounter
--- OUTSIDE RECORDS SUMMARY | 2025-01-04 10:55 | XMS_ITS | Encounter Summary ---
Author Organization Formerly [facility] Address [address] [place] [address] Care Team Providers Care Skip Miner Blasting Name Role Phone Jaydon Bowen MD Primary Care Provider Neel Randolph MD Primary Care Provider [phone] Hortensia Henry Unavailable [phone] Carlos Alberto Urias MD Unavailable Tracy Gillespie DO Unavailable Unavailable Uma Dorantes MD Unavailable [phone] Tacho Castillo DO Primary Care Provider + [phone] Jessica Cortez DO Unavailable [phone] Kathrine Stephens LPCA Unavailable [phone] Stu Erickson MD Unavailable [phone] Savita Lyons RN Unavailable [phone] Celena Morrow DO Primary Care Provider [phone] Titus Maki DEVELOPMENT MANAGER Unavailable Unknown Primary Care Provider [phone] Elsa Batista DEVELOPMENT MANAGER Unavailable [phone] Encounter Details Date Type Department Care Team (Late st Contact Info) Description 05/22/2017 Scanned Document [facility] [address] [place] [address] [address] [place] [address] Carlos Alberto Urias MD [address] [phone] [place] [phone] Social History Tobacco Use Types Packs/Day Years [...] on filedocumented in this encounter Care Teams Skip Miner Blasting Relationship Specialty Start Date End Date Jaydon Bowen MD PCP - General Internal Medicine 12/23/18 01/12/19 Neel Randolph MD PCP - General Internal Medicine 01/13/19 10/16/19 Tacho Castillo DO PCP - General Internal Medicine 10/17/19 10/27/22 Celena Morrow DO [address] [place] [address] [address] [place] [address] PCP - General Internal Medicine 10/28/22 07/26/23 Unknown Unknow Provider Address PCP - General 07/27/23 Hortensia Henry [address] [place] [address] Maintenance Mgr 01/31/19 05/04/19 Carlos Alberto Urias MD [address] [place], [place] [phone] Neurology 03/10/19 Tracy Gillespie DO Resident Psychiatry, General 03/21/19 03/10/20 Uma Dorantes MD Primary Attending Psychiatry, General 05/05/1902/19 Jessica Cortez DO Primary Attending Psychiatry, General 12/15/19 Kathrine Stephens [facility] Clinician Social Work 12/14/20 04/28/21 Stu Erickson MD [address] [place], [place] [phone] Medicine Hospitalist 06/19/21 Savita Lyons RN [address] [phone] Registered Nurse Hepatology 06/19/21 Titus Maki LCSW [address] [place] [address] Crane Operator Cab Clinical Social Work 11/26/22 Elsa Batista LCSW [address] [place] [address] Crane Operator Cab Clinical Social Work 05/16/24 05/16/24 documented as of this encounter
--- OUTSIDE RECORDS SUMMARY | 2025-01-04 10:55 | XMS_ITS | Encounter Summary ---
Author Organization [facility] Address [address] [place] [address] Care Team Providers Care Cancer Program Consultant Name Role Phone Jaydon Bowen MD Primary Care Provider [phone] Neel Randolph MD Primary Care Provider [phone] Hortensia Henry Unavailable [phone] Carlos Alberto Urias MD Unavailable Tracy Gillespie DO Unavailable Unavailable Uma Dorantes MD Unavailable [phone] Tacho Castillo DO Primary Care Provider + [phone] Jessica Cortez DO Unavailable [phone] Kathrine Stephens LPCA Unavailable [phone] Stu Erickson MD Unavailable [phone] Savita Lyons RN Unavailable [phone] Celena Morrow DO Primary Care Provider [phone] Titus Maki MAIL PROCESSING CLERK Unavailable Unknown Primary Care Provider [phone] Elsa Batista MAIL PROCESSING CLERK Unavailable [phone] Encounter Details Date Type Department Care Team (Late st Contact Info) Description 06/19/2017 Scanned Document [facility] Specialty Clinics [address] [place] [address] [address] [place] [address] Carlos Alberto Urias MD [address] 8[address] [place] [phone] Social History Tobacco Use Types Packs/Day Years [...] on filedocumented in this encounter Care Teams Cancer Program Consultant Relationship Specialty Start Date End Date Jaydon Bowen MD PCP - General Internal Medicine 12/23/18 01/12/19 Neel Randolph MD PCP - General Internal Medicine 01/13/19 10/16/19 Tacho Castillo DO PCP - General Internal Medicine 10/17/19 10/27/22 Celena Morrow DO [address] [place] [address] [address] [place] [address] PCP - General Internal Medicine 10/28/22 07/26/23 Unknown Unknow Provider Address PCP - General 07/27/23 Hortensia Henry [address] [place] [address] Web Search Evaluator 01/31/19 05/04/19 Carlos Alberto Urias MD [address] [place], [place] [phone] Neurology 03/10/19 Tracy Gillespie DO Resident Psychiatry, General 03/21/19 03/10/20 Uma Dorantes MD Primary Attending Psychiatry, General 05/05/1902/19 Jessica Cortez DO Primary Attending Psychiatry, General 12/15/19 Kathrine Stephens [facility] Clinician Social Work 12/14/20 04/28/21 Stu Erickson MD [address] [place], [place] [phone] Medicine Hospitalist 06/19/21 Savita Lyons RN [address] [phone] Registered Nurse Hepatology 06/19/21 Titus Maki LCSW [address] [place] [address] Kettle Fry Cook Operator Clinical Social Work 11/26/22 Elsa Batista LCSW [address] [place] [address] Kettle Fry Cook Operator Clinical Social Work 05/16/24 05/16/24 documented as of this encounter
--- OUTSIDE RECORDS SUMMARY | 2025-01-04 10:56 | XMS_ITS | Clinical Summary ---
Author Organization [employer] Address [address] [facility] 7t [place] [address] Care Team Providers Care [employer] Name Role Phone Liz Goldberg MD Primary Care Provider Allergies Active Allergy Reactions Criticality Noted Date Comments Brassica Oleracea 10/24/2024 Ibuprofen 08/25/2023 Body feels numb when taking, pt is ruling it an allergy Lactose 08/25/2023 Latex 08/25/2023 Penicillin G Anaphylaxis High 08/25/2023 Shellfish-Derived Products Tricyclic Antidepressants Drowsiness Medium 06/03/2024 Medications * This document contains information received from the source organization and may not represent a complete record from that organization. topiramate (Topamax) 25 MG tablet Take 1 tablet (25 mg) by mouth at bedtime. 30 tablet 11 10/24/2024 Active EPINEPHrine (Epipen) 0.3 MG/0.3ML injection syringe Inject 0.3 mL (0.3 mg) as directed 1 (one) time if needed for anaphylaxis. Inject into upper leg. Call 911 after use. 1 each 1 10/24/2024 Active loratadine (Claritin) 10 MG tablet Take 10 mg by mouth. 11/03/2013 Active SUMAtriptan (Imitrex) 50 MG tablet Take 1 tablet (50 mg) by mouth 1 (one) time if needed for migraine. May repeat dose once in 2 hours if no relief. Do not exceed 2 doses in 24 hours. 9 tablet 3 10/24/2024 Active Active Problems Problem Noted Date Diagnosed Date Seizure disorder 06/03/2024 Assessment & Plan (11/04/2024 11:18 AM EDT): - DDx: pseudoseizure; migraine with neurological symptoms; conversion - Previously seeing neurologist, including [facility] - Last neurologist in [place] - patient had been taking topiramate prescribed by her psychiatrist - resume topiramate - evaluation history: Normal EEG and MRI per [facility] neurology in 2015; normal EEG and MRI in 2019 according previous PCP's note - referred to neurology. Head CT and previous neurology record from [place] are prerequisite. Assessment & Plan (06/03/2024 6:55 AM EST): - DDx: pseudoseizure; migraine with neurological symptoms; conversion - Previously seeing neurologist, including [facility] - Last neurologist in [place] - patient had been taking topiramate prescribed by her psychiatrist - resume topiramate - evaluation history: Normal EEG and MRI per [facility] neurology Elevated BP without diagnosis of hypertension Assessment & Plan (10/24/2024 10:37 AM EDT): -Goal BP < 130/80 per ACC/AHA guideline (Treatment threshold >=140/90) -Within acceptable range -Continue working on lifestyle modifications -Recommended self-monitoring BP. -Consider re-ordering sleep study Assessment & Plan (06/03/2024 6:35 AM EST): -Goal BP < 140/90 per JNC-8 and < 130/80 per ACC/AHA guideline (Treatment threshold >=140/90) -DBP is elevated -Continue working on lifestyle modifications -Recommended self-monitoring BP. -Consider re-ordering sleep study Mood disorder 06/02/2024 Assessment & Plan (11/04/2024 11:00 AM EDT): - PHQ9 score 15; SIDDHARTHA 7 score 15 in May 2024 - Current Dx: anxiety and depression - [...] pain group - Referred to behavioral health Assessment & Plan (06/03/2024 6:44 AM EST): [...] from chronic pain group - Referred to [facility] Headache 03/12/2022 Overview (06/01/2024): 37-year-old female with [...] prior to return visit. Assessment & Plan (11/04/2024 11:19 AM EDT): - previously evaluated by neurologist, including [facility]. - more recent neurology notes are not available - according to [facility] neurology provider note, she had normal MRI and AEEG. Failed TCA trial due to side effects. Rx topiramate. - restart topiramate 25 mg daily - restart sumatriptan prn - patient agreed to sign medical release at [facility] today so that we can obtain notes from her last neurologist [place]. Assessment & Plan (06/03/2024 6:33 AM EST): - previously evaluated by neurologist, including [facility]. - more recent neurology notes are not available - according to [facility] neurology provider note, she had normal MRI and AEEG. Failed TCA trial due to side effects. Rx topiramate. - restart topiramate 25 mg at bedtime - patient agreed to sign medical release at [facility] today so that we can obtain notes from her last neurologist [place]. Gastroesophageal reflux 06/11/2021 Metabolic dysfunction-associ ated steatotic liver disease (MASLD) 06/11/2021 Assessment & Plan (11/04/2024 10:58 AM EDT): - Last liver test: Ordered on 06/02/24 - Last US / elastography: 08/19/24 Liver US with elastography: hepatic steatosis; the median shear wave velocity in the liver is 1.36 m/s - FIB4 index : Needs CBC - GI: None at this time - continue working on lifestyle modifications - continue surveillance study Assessment & Plan (06/03/2024 6:37 AM EST): - Last liver test: Ordered on 06/02/24 - Last US / elastography: - FIB4 index : Needs CBC - [...] health Conversion disorder 12/15/2018 Assessment & Plan (11/04/2024 11:16 AM EDT): - documented in previous PCP's notes as 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 - her previous PCP documents in 2022 that she had normal EEG in 2018 and normal MRI in 2018. - She was seeing [facility] neurology until 2014, then left for [place] - Restart topiramate for headache and seizure Assessment & Plan (06/03/2024 6:53 AM EST): - previous Dx - patient states she has been diagnosed with and treated for seizure. We have neurology notes documenting normal EEG and MRI. - pseudoseizure? - obtaining records from patient's neurologist Resolved Problems Problem Noted Date Diagnosed Date Resolved Date Hepatic lesion 06/11/2021 11/04/2024 Encounters * This document contains information received from the source organization and may not represent a complete record from that organization. Date Type Department Care Team Description 01/03/2025 5:40 PM EDT Office Visit [facility] [address] [place] [address] Jerson Marquez MD Acute pain of left knee (Primary Dx) 01/03/2025 Travel 10/31/2024 Results Follow-Up [facility] [address] [place] [address] Head w/o Contrast 10/24/2024 10:00 AM EDT Office Visit [facility] [address] [place] [address] Liz Goldberg MD Chronic nonintractable headache, unspecified headache type (Primary Dx); Seizure disorder (CMS/HCC); Mood disorder (CMS/HCC); Metabolic dysfunction-associated steatotic liver disease (MASLD); Elevated BP without diagnosis of hypertension; Conversion disorder 10/24/2024 Travel 10/20/2024 Telephone [facility] [address] [place] [address] Liz Goldberg MD chartprep 10/14/2024 Telephone [facility] [address] [place], [place] [phone] Liz Goldberg MD chart prep 10/12/2024 Telephone [facility] [address] [place], [place] [phone] Donna Stephens, architectural engineering teacher from Last 3 Months Immunizations Immunization Administration Dates Next Due Hep A, Adult 10/24/2024 Tdap 02/14/2020 Social History Tobacco Use Types [...] F) 01/03/2025 5:37 PM EDT Respiratory Rate 20 10/24/2024 10:05 AM EDT Oxygen Saturation 99% 01/03/2025 5:37 PM EDT Inhaled Oxygen Concentration - - Weight 66.9 kg (147 lb 6.4 oz) 01/03/2025 5:37 P M EDT Height 146.4 cm (4' 9.63 ) 10/24/2024 10:05 AM E DT Body Mass Index 31.2 10/24/2024 10:05 AM EDT Plan of Treatment Upcoming Encounters Date Type Department Care Team (Late st Contact Info) Description 01/24/2025 3:15 PM EDT Office Visit [facility] [address] [place] [address] Liz Goldberg MD [address] [place] [address] Health Maintenance Due Date Last Done Comments Dental Oral Exam 1986 Dental Prophylaxis 1986 Dental X-Ray: Full Mouth 1986 HPV Vaccines (1 - 3-dose series) 2001 Pap Smear 2007 Cervical Cancer Screening 02/04/2016 HPV/Cotest 02/04/2016 Dental X-Ray: Bitewings 08/25/2024 08/25/2023 Depression Monitoring 11/30/2024 06/02/2024, 025 COVID-19 Vaccine ( season) 2024 Influenza Vaccine (#1) 2024 Hepatitis A Vaccines (2 of 2 - Risk 2-dose series) 04/26/2025 10/24/2024 SDOH Screening 05/19/2025 05/19/2024 Alcohol/Substance Use Screening 06/02/2025 06/02/2024 Family Planning (PISQ) 06/03/2025 06/03/2024 Disability Screening 10/24/2025 10/24/2024 Tobacco Screening 11/04/2025 11/04/2024 Lipid Panel 06/02/2029 06/02/2024 DTaP/Tdap/Td Vaccines (5 - Td or Tdap) 02/13/2030 02/14/2020, 10/05/2008, 08/26/1991, Additional history exists Zoster Vaccines (1 of 2) 02/04/2036 RSV Patients and Patients Aged 60 years or older (1 - 1-dose 75+ series) 2061 HIB Vaccines Completed 10/27/1990 IPV Vaccines Completed 08/26/1991, 12/19, 10/27/1990 Hepatitis B Vaccines Discontinued 02/15/1999, 04/24/1998, 03/01/1998 HIV Screening Completed 06/02/2024, 02/14/2020 Hepatitis C Screening Completed 06/02/2024, 025 Meningococcal B Vaccine Aged Out No l onger eligible based on patient's age to complete this topic Meningococcal Vaccine Aged Out No jodi arline eligible based on patient's age to complete this topic Pneumococcal Vaccine: Pediatrics (0 to 5 Years) and At-Risk Patients (6 to 49) Years Aged Out No longer eligible based on [...] AM EDT Acute pain of left knee CT HEAD WO CONTRAST Routine 10/30/2024 1 1:07 PM EDT Chronic nonintractable headache, unspecified headache type Seizure disorder (CMS/HCC) HEPATITIS C AB W/REFL TO HCV RNA, QN, PCR Routine 06/02/2024 9:46 AM EST Routine screening for STI (sexually transmitted infection) HIV 1/2 ANTIGEN/ANTIBODY, FOURTH GENERATION W/RFL Routine 06/02/2024 9:46 AM EST Routine screening for STI (sexually transmitted infection) LIPID PANEL WITH REFLEX TO DIRECT LDL Routine 06/02/2024 9:46 AM EST Screening for lipid disorders BITEWING - SINGLE RADIOGRAPHIC IMAGE Routine 08/25/2023 2:00 PM EDT from Last 3 Months or Most Recently Relevant to Health Maintenance Results * XR Knee 4+ Views Left (01/04/2025 9:35 AM EDT) Anatomical Region Laterality Modality Lower Extremities, Knee Left [facility] 01/04/2025 9:35 AM EDT Narrative 01/04/2025 9:48 [place] [address] XRay Report Signed Patient: Antoinette Nieves MR#: [id number] : 1985 Acct:[id number] Age/Sex: 39 / F ADM Date: 01/04/25 Loc: HO.HHCX Attending Dr: Liz Goldberg MD Ordering Physician: Jerson Marquez MD Date of Service: 01/04/25 Procedure(s): XR knee LT 4V Accession Number(s): [id number] cc: Jerson Marquez MD; Liz Goldberg MD [...] London Mcpherson MD 01/04/2025 09:46 AM EDT RP Dictated By: London Mcpherson MD Signed By: <Electronically signed by London Mcpherson MD in OV> 01/04/25945 DD/ 4 TD/TT: 01/04/25935 Furnace Mechanic Helper: Procedure Note Donotuseinterpreter, Image - 01/04/[address] [address] XRay Report Signed Patient: Antoinette NievesMR#: [id number] : 1985Acct:[id number] Age/Sex: 39 / FADM Date: 01/04/25 Loc: HO.HHCX Attending Dr: Liz Goldberg MD Ordering Physician: Jerson Marquez MD Date of Service: 01/04/25 Procedure(s): XR knee LT 4V Accession Number(s): [id number] cc: Jerson Marquez MD; Liz Goldberg MD [...] London Mcpherson MD 01/04/2025 09:46 AM EDT RP Dictated By: London Mcpherson MD Signed By: <Electronically signed by London Mcpherson MD in OV> 01/04/25945 DD/ 4 TD/TT: 01/04/25935 Furnace Mechanic Helper: Jerson Marquez MD IMG XR PROCEDURES Edited Result - Final * CT Head w/o Contrast (10/30/2024 11:07 PM EDT) Anatomical Region Laterality Modality Head, Neck Computed Tomogra phy 10/30/2024 11:0 7 PM EDT Narrative 10/30/2024 11:08 PM EDT [address] [address] [address] Scan Report Signed Patient: Antoinette Nieves MR#: [id number] : 1985 Acct:[id number] Age/Sex: 39 / F ADM Date: 10/27/24 Loc: HO.CT Attending Dr: Liz Goldberg MD Ordering Physician: Liz Goldberg MD Date of Service: 10/27/24 Procedure(s): CT head/brain wo IV con Accession Number(s): [id number] cc: Liz Goldberg MD Report Number: [id number]: Total DLP = 704.00 mGy-cm CLINICAL HISTORY: headache, seizure CT head without contrast Comparison: None provided Findings: No intra-axial mass, midline shift, hydrocephalus, or acute hemorrhage. No significant atrophy-like change or white matter disease. There is no sinus or mastoid fluid. The orbits are unremarkable. No skull fracture. IMPRESSION: 1. No acute intracranial findings. This document has been electronically signed by: Calvin Cosby MD, PHD on 10/30/2024 23:07:22 Dictated By: Calvin Cosby MD Signed By: <Electronically signed by Calvin Cosby MD in OV> 10/30/242307 DD/ 06 TD/TT: 10/30/242306 Furnace Mechanic Helper: Procedure Note Donotuseinterpreter, Image - 10/30/[address] [address] [address] Scan Report Signed Patient: Antoinette NievesMR#: [id number] : 1985Acct:[id number] Age/Sex: 39 / FADM Date: 10/27/24 Loc: HO.CT Attending Dr: Liz Goldberg MD Ordering Physician: Liz Goldberg MD Date of Service: 10/27/24 Procedure(s): CT head/brain wo IV con Accession Number(s): [id number] cc: Liz Goldberg MD Report Number: [id number]: Total DLP = 704.00 mGy-cm CLINICAL HISTORY: headache, seizure CT head without contrast Comparison: None provided Findings: No intra-axial mass, midline shift, hydrocephalus, or acute hemorrhage. No significant atrophy-like change or white matter disease. There is no sinus or mastoid fluid. The orbits are unremarkable. No skull fracture. IMPRESSION: 1. No acute intracranial findings. This document has been electronically signed by: Calvin Cosby MD, PHD on 10/30/2024 23:07:22 Dictated By: Calvin Cosby MD Signed By: <Electronically signed by Calvin Cosby MD in OV> 10/30/242307 DD/ 06 TD/TT: 10/30/242306 Furnace Mechanic Helper: Liz Goldberg MD IMG CT PROCEDURES Edited Result - Final * (ABNORMAL) Lipid Panel with Reflex to Direct LDL (06/02/2024 9:46 AM EST) Triglycerides 234(H) <150 mg/dL [facility] Comment:Desirable Triglyceri de: less than 150 mg/dLBorderline High Triglyceride 150-199 mg/dLHigh Triglyceride: 200-499 mg/dLVery High Triglyceride: greater than or equal to 5OO mg/dL Cholesterol 204(H) <200 mg/dL [facility] Comment:Desirable Cholestero l: less than 200 mg/dLBorderline High Cholesterol: 200-239 mg/dLHigh Cholesterol: greater than 239 mg/dL LDL Cholesterol Calculated 117(H) <100 mg/dL [facility] Comment:Desirable LDL: less than 100 mg/dLNear Optimal/Above Optimal LDL: 110- 129 mg/dLBorderline High LDL: 130-159 mg/dLHigh LDL: 160-189 mg/dLVery High LDL: greater than or equal to 190 mg/dL HDL Cholesterol 41 >40 mg/dL [facility] Comment:Desirable HDL: great er than 40 mg/dL Note: This HDL assay may give artificially low results in patients with liver disease. Blood 06/02/2024 9:46 AM EST 06/02/2024 11:15 AM EST Liz Goldberg MD LAB BLOOD ORDERABLES Final Resul t Performing Organization Address [facility] Co de Phone Number [facility] [address] [place] [phone] * Hepatitis C Antibody with Reflex to HCV, RNA, Quantitative, Real-Time PCR (06/02/2024 9:46 AM EST) Hepatitis C Antibody GRAYZONE Nonreactive [facility] Comment:Antibodies to HCV ma y or may not be present. Suggest repeatanti-HCV in 4-6 weeks and/or HCV viral load if clinicallyindicated. Blood Venous blood specimen / Unknown 06/02/2024 9:46 AM EST 06/02/2024 11:15 AM EST Liz Goldberg MD LAB BLOOD ORDERABLES Final Resul t Performing Organization Address [facility] de Phone Number [facility] [address] [place] [phone] * HIV-1/2 Antigen and Antibodies, Fourth Generation, with Reflexes (06/02/2024 9:46 AM EST) HIV AB/AG Nonreactive Nonreactive [facility] Comment:HIV-1 p24 Ag and/or HIV-1/HIV-2 Ab not detected.A test result that is nonreactive does not exclude thepossibility of exposure to or infection with HIV-1 and/orHIV-2. Nonreactive results in this assay for individualswith prior exposure to HIV-1 and/or HIV-2 may be due toantigen and antibody levels that are below the limit ofdetection of this assay.The [employer] HIV Ag/Ab Combo assay result andsupplemental assay results should be interpreted inconjunction with the patient's clinical presentation,history and other laboratory results. If the results areinconsistent with clinical evidence, additional testing issuggested to confirm the result. Blood Venous blood specimen / Unknown 06/02/2024 9:46 AM EST 06/02/2024 11:15 AM EST us Liz Goldberg MD LAB BLOOD ORDERABLES Final Resul t [facility] [address] [place] [address] [phone] from Last 3 Months or Most Recently Relevant to Health Maintenance Insurance C[facility] MEDICAID STAND ADULT Care Teams [employer] Relationship Specialty Start Date End Date Liz Goldberg MD [address] [place] [address] PCP - General Family Medicine 06/02/24
--- OUTSIDE RECORDS SUMMARY | 2025-01-04 10:56 | XMS_ITS | Encounter Summary ---
Author Organization Formerly [facility] Address [address] [place] [address] Care Team Providers Care Internet Marketing Coordinator Name Role Phone Jaydon Bowen MD Primary Care Provider Neel Randolph MD Primary Care Provider [phone] Hortensia Henry Unavailable [phone] Carlos Alberto Urias MD Unavailable Tracy Gillespie DO Unavailable Unavailable Uma Dorantes MD Unavailable [phone] Tacho Castillo DO Primary Care Provider + [phone] Jessica Cortez DO Unavailable [phone] Kathrine Stephens LPCA Unavailable [phone] Stu Erickson MD Unavailable [phone] Savita Lyons RN Unavailable [phone] Celena Morrow DO Primary Care Provider [phone] Titus Maki MECHANICAL ESTIMATOR Unavailable [phone] Unknown Primary Care Provider +[phone] -0000 Elsa Batista MECHANICAL ESTIMATOR Unavailable [phone] Encounter Details Date Type Department Care Team (Late st Contact Info) Description 01/10/2019 Scanned Document [facility] [address] [place] [address] [address] [place] [address] Bib Peralta MD [address] [place] [id number] Social History Tobacco Use Types Packs/Day Years [...] on filedocumented in this encounter Care Teams Internet Marketing Coordinator Relationship Specialty Start Date End Date Jaydon Bowen MD PCP - General Internal Medicine 12/23/18 01/12/19 Neel Randolph MD PCP - General Internal Medicine 01/13/19 10/16/19 Tacho Castillo DO PCP - General Internal Medicine 10/17/19 10/27/22 Celena Morrow DO 85 [facility] [address] [place] [address] PCP - General Internal Medicine 10/28/22 07/26/23 Unknown Unknow Provider Address PCP - General 07/27/23 Hortensia Henry [address] [place] [address] Refrigeration Mechanic Helper 01/31/19 05/04/19 Carlos Alberto Urias MD 85 [facility] [address] [place] [address] Neurology 03/10/19 Tracy Gillespie DO Resident Psychiatry, General 03/21/19 03/10/20 Uma Dorantes MD Primary Attending Psychiatry, General 05/05/1902/19 Jessica Cortez DO Primary Attending Psychiatry, General 12/15/19 Kathrine Stephens [facility] Clinician Social Work 12/14/20 04/28/21 Stu Erickson MD [address] [place] [address] Medicine Hospitalist 06/19/21 Savita Lyons, RN 85 [facility] [address] [place] [id number] Registered Nurse Hepatology 06/19/21 Titus Maki LCSW [address] [place], [place] [id number] Hospital Scientist Clinical Social Work 11/26/22 Elsa Batista LCSW [address] [place] [address] Hospital Scientist Clinical Social Work 05/16/24 05/16/24 documented as of this encounter
--- OUTSIDE RECORDS SUMMARY | 2025-01-04 10:56 | XMS_ITS | Clinical Summary ---
Author Organization [facility] Address [address] [place] [address] Care Team Providers Care Section Crews Activities Clerk Name Role Phone Carlos Alberto Urias MD Unavailable Jessica Cortez DO Unavailable Stu Erickson MD Unavailable [phone] Savita Lyons RN Unavailable [phone] Titus MakiW Unavailable Unknown Primary Care Provider [phone] [...] Active vitamin D3 (CHOLECALCIFEROL ) 1.25 MG (54547 UT) tabletIndication s:Vitamin D deficiency Take 1 [...] prior to return visit. Assessment & Plan (04/29/2022 2:19 PM EST): [...] antiepileptic drugs previously. She was previously in [place] than [place] then moved to [place]. She was recently admitted to [facility] for long-term EEG monitoring and it was [...] Plan (12/27/2018 2:32 PM EDT): PHQ 9-15, siddhartha 7 -9, no suicidal ideation. Patient reports [...] oz pur e alcohol) only on weekend [email or web address] Utilities Answer Date Recorded In the past 12 months has th e electric, gas, oil, or water [employer] threatened to shut off services in your [...] place to sleep or slept in a intermediate (including now)? No 02/04/2023 Comments No Sex [...] 113 04/07/2023 2:45 PM EST Temperature 36.1 C (97 F) 04/07/2023 2:45 PM EST Respiratory Rate 16 [...] series) 2005 Pap Smear (Ages 21-65) 2007 HPV Vaccines (1 - 3-dose SCD M series) 2013 Influenza Vaccine 11/18/2024 02/14/2020 (Declined) COVID-19 Vaccine ( - 2023-2 5 season) 2024 DTaP/Tdap/Td Vaccines (2 - T d or Tdap) 02/13/2030 02/14/2020 HIV Screening Completed 02/14/2020 Hepatitis C Virus Screening Completed 02/14/2020 Pneumococcal Vaccine: Pediatric (0-5 Years) and At-Risk [...] Nonreactive HOSPITAL LAB Comment: CDC recommends a edpsiv-wp-oewnwb (S/CO) ratio equal to or >5 to predict true infection 95% of the time. Low reactive results (1:00-4.99 S/CO) should be confirmed by HCV nucleic acid testing (test code 12451/[facility]). Performed at [facility], [place], [place] License 0385 CLIA [id number] Blood specimen (specimen) Heel structure / Unknown [...] test by nucleic acid amplification. Performed at [facility], [place], [place] License 0385 CLIA [id number] Blood specimen (specimen) Heel structure / Unknown 02/14/2020 11:04 AM EDT 02/14/2020 2:59 PM EDT Jaydon Bowen MD LAB BLOOD ORDERABLES Final Result HOSPITAL [facility] from Last 3 Months or Most Recently Relevant to Health Maintenance Insurance [facility] Advance Directives * Full Code (Latest Code Status on File) Date Activated Date Inactivated Comments 12/13/2018 11:31 AM 04/27/2021 4:20 AM Care Teams Section Crews Activities Clerk Relationship Specialty Start Date End Date Unknown Unknow Provider Address PCP - General 07/27/23 Carlos Alberto Urias MD [address] [address] Neurology 03/10/19 Jessica Cortez DO [address] [address] Primary BH Attending Psychiatry, General 12/15/19 Stu Erickson MD [address] [place] [address] Medicine Hospitalist 06/19/21 Savita Lyons RN [address] [place] [address] Registered Nurse Hepatology 06/19/21 Titus Maki LCSW [address] [place] [address] China Painter Clinical Social Work 11/26/22
--- OUTSIDE RECORDS SUMMARY | 2025-01-04 10:56 | XMS_ITS | Encounter Summary ---
Author Organization [facility] Address [address] [place] [address] Care Team Providers Care Timber Mill Worker Name Role Phone Carlos Alberto Urias MD Unavailable Jessica Cortez DO Unavailable [phone] Stu Erickson MD Unavailable [phone] Savita Lyons RN Unavailable [phone] Celena Morrow DO Primary Care Provider [phone] Titus Maki BUSINESS ANALYSIS ANALYST Unavailable [phone] Unknown Primary Care Provider +1-000-000 -0000 Elsa Batista BUSINESS ANALYSIS ANALYST Unavailable [phone] Encounter Details Date Type Department Care Team (Late st Contact Info) Description 07/24/2023 Telephone [facility] [address] [address] [place]aitlyn Velásquez [place] [address] [place] [address] Social History Tobacco Use Types Packs/Day Years Used Date Smoking Tobacco: Former Cigarettes 0 06/21/2014 - 06/21/2018 Smokeless Tobacco: Never Comments:social smoker with etoh only Alcohol Use Standard Drinks/Week Comments Yes 6 (1 standard drink = 0.6 oz pur e alcohol) only on weekend [facility] Utilities Answer Date Recorded In the past 12 months has [employer], gas, oil, or water [employer] threatened to shut off services in your [...] place to sleep or slept in a skilled nursing (including now)? No 02/04/2023 Comments No Sex [...] EDT PT MOVED OUT OF STATE TO [facility]. WILL NO LONGER NEED OUR SERVICES documented in this encounter Plan of Treatment Not on file documented as of this encounter Visit Diagnoses Not on filedocumented in this encounter Care Teams Timber Mill Worker Relationship Specialty Start Date End Date CristhianCelena salazar [address] [address] PCP - General Internal Medicine 10/28/22 07/26/23 Unknown Unknow Provider Address PCP - General 07/27/23 Carlos Alberto Urias MD [address] [place] [address] Neurology 03/10/19 Jessica Cortez DO [address] [place] [address] Primary BH Attending Psychiatry, General 12/15/19 Stu Erickson MD [address] [place] [address] Medicine Hospitalist 06/19/21 Savita Lyons, RN [address] [address] Registered Nurse Hepatology 06/19/21 Titus Maki LCSW [address] [place] [address] Head Of Commission Department Clinical Social Work 11/26/22 Elsa Batista LCSW [address] [place] [address] Head Of Commission Department Clinical Social Work 05/16/24 05/16/24 documented as of this encounter
--- OUTSIDE RECORDS SUMMARY | 2025-01-04 10:56 | XMS_ITS | Encounter Summary ---
Author Organization [facility] Address [address] [place] [address] Care Team Providers Care Director Of Scientific Research Name Role Phone Carlos Alberto Urias MD Unavailable CastilloTacho Zhong DO Primary Care Provider + [phone] Jessica Cortez DO Unavailable Stu Erickson MD Unavailable [phone] Savita Lyons RN Unavailable [phone] Celena Morrow DO Primary Care Provider [phone] Titus Maki EDGE SETTER Unavailable Unknown Primary Care Provider +1-000-000 -0000 Elsa Batista EDGE SETTER Unavailable [phone] Encounter Details Date Type Department Care Team (Late st Contact Info) Description 08/13/2021 Prep for Surgery NEPHROLOGY IP [address] [place] [address] Dawood Rose MD 3 [facility] [address] [place], [place] [id number] Social History Tobacco Use Types Packs/Day Years [...] on filedocumented in this encounter Care Teams Director Of Scientific Research Relationship Specialty Start Date End Date Tacho Castillo DO [address] [address] PCP - General Internal Medicine 10/17/19 10/27/22 Celena Morrow DO [address] [address] PCP - General Internal Medicine 10/28/22 07/26/23 Unknown Unknow Provider Address PCP - General 07/27/23 Carlos Alberto Urias MD [address] [address] Neurology 03/10/19 Jessica Cortez DO [address] [address] Primary BH Attending Psychiatry, General 12/15/19 Stu Erickson MD [address] [place] [address] Medicine Hospitalist 06/19/21 Savita Lyons RN [address] [id number] Registered Nurse Hepatology 06/19/21 Titus Maki LCSW [address] [place] [address] Ornament Stapler Clinical Social Work 11/26/22 Elsa Batista LCSW [address] [place], [place] [phone] Ornament Stapler Clinical Social Work 05/16/24 05/16/24 documented as of this encounter
--- OUTSIDE RECORDS SUMMARY | 2025-01-04 10:56 | XMS_ITS | Encounter Summary ---
Author Organization [facility] Address [address] [place] [address] Care Team Providers Care Marketing Program Manager Name Role Phone Carlos Alberto Urias MD Unavailable CastilloTacho Zhong DO Primary Care Provider + [phone] Jessica Cortez DO Unavailable Stu Erickson MD Unavailable [phone] Savita Lyons RN Unavailable [phone] Celena Morrow DO Primary Care Provider [phone] Titus Maki RESPIRATORY THERAPY TECHNICIAN Unavailable Unknown Primary Care Provider +1-000-000 -0000 Elsa Batista RESPIRATORY THERAPY TECHNICIAN Unavailable [phone] Encounter Details Date Type Department Care Team (Late st Contact Info) Description 06/19/2021 Telephone [facility] 85 [facility] [address] [place] [address] Kristy Candelaria MA 85 [facility] [address] [place] [address] Social History Tobacco Use Types [...] 3:09 PM EST Patient scheduled for with FAMILY PARTNER. Informed to be npo. * Telephone Encounter [...] on filedocumented in this encounter Care Teams Marketing Program Manager Relationship Specialty Start Date End Date Tacho Castillo DO [address] [place] [address] [address] [place] [address] PCP - General Internal Medicine 10/17/19 10/27/22 Celena Morrow DO [address] [address] PCP - General Internal Medicine 10/28/22 07/26/23 Unknown Unknow Provider Address PCP - General 07/27/23 Carlos Alberto Urias MD [address] [address] Neurology 03/10/19 Jessica Cortez DO [address] [address] Primary BH Attending Psychiatry, General 12/15/19 Stu Erickson MD [address] [place] [address] Medicine Hospitalist 06/19/21 Savita Lyons, RN [address] [address] Registered Nurse Hepatology 06/19/21 Titus Maki LCSW [address] [place] [address] Beach Expert Clinical Social Work 11/26/22 Elsa Batista LCSW [address] [place] [address] Beach Expert Clinical Social Work 05/16/24 05/16/24 documented as of this encounter
--- OUTSIDE RECORDS SUMMARY | 2025-01-04 10:56 | XMS_ITS | Encounter Summary ---
Author Organization [employer] Address [address] [place] [address] Care Team Providers Care Gatekeeper Name Role Phone Liz Goldberg MD Primary Care Provider Reason for Referral * Imaging (Routine) - Closed Specialty Diagnoses / Procedures Referred By Giovanny almonte Referred To Contact Radiology Diagnoses Metabolic dysfunction-associated steatotic liver disease (MASLD) Procedures US Abdomen Comp w elastography Liz Goldberg MD [address] [place] [address] Phone: tel: fax: [address] Phone: tel: fax: Referral ID Status Reason Start Date Expiration Date Visits Re quested Visits Authorized [id number] Closed 06/02/2024 06/02/2025 1 1 Encounter Details Date Type Department Care Team (Late st Contact Info) Description 06/02/2024 Orders Only [facility] [address], [place] [phone] Liz Goldberg MD [address], [place] [phone] Metabolic dysfunction-associated steatotic liver disease (MASLD) (Primary [...] AM EDT documented as of this encounter Functional Status * Over the past 2 weeks, how often have you been bothered by any of the following problems? Question Answer Date of Assessment Author Patient Health Questionnaire -2 Score 5 06/02/2024 10:06 AM Adrianne Fuentes [place] * Little interest or pleasure in doing things Answer Date of Assessment Author Nearly every day 06/02/2024 10:06 AM Nancy Fuentes [place] * Feeling down, depressed, or hopeless Answer Date of Assessment Author More than half the days 06/02/2024 10:06 AM Nancy Fuentes [place] * Trouble falling or staying asleep, or sleeping too much Answer Date of Assessment Author Nearly every day 06/02/2024 10:06 AM Nancy Fuentes [place] * Feeling tired or having little energy Answer Date of Assessment Author Nearly every day 06/02/2024 10:06 AM Nancy Fuentes [place] * Poor appetite or overeating Answer Date of Assessment Author Not at all 06/02/2024 10:06 AM Nancy Fuentes [place] * Feeling bad about yourself - or that you are a failure or have let yourself or your family down Answer Date of Assessment Author More than half the days 06/02/2024 10:06 AM Nancy Fuentes [place] * Trouble concentrating on things, such as reading the newspaper or watching television Answer Date of Assessment Author More than half the days 06/02/2024 10:06 AM Nancy Fuentes [place] * Moving or speaking so slowly that other people could have noticed? Or the opposite - being so fidgety or restless that you have been moving around a lot more than usual. Answer Date of Assessment Author Not at all 06/02/2024 10:06 AM Nancy Fuentes MA * Thoughts that you would be better off or hurting yourself in some way Answer Date of Assessment Author Not at all 06/02/2024 10:06 AM Nancy Fuentes MA * Patient Health Questionnaire-9 Score Answer Date of Assessment Author 15 06/02/2024 10:06 AM Nancy Fuentes [place] * How difficult have these problems made it for you to do your work, take care of things at home, or get along with other people? Answer Date of Assessment Author Somewhat difficult 06/02/2024 10:06 AM Nancy Jennings MA * Over the last 2 weeks, how often have you been bothered by any of the following problems? Question Answer Date of Assessment Author Feeling nervous, anxious, or on edge 2 06/02/2024 10:06 AM Adrianne Fuentes MA Not being able to stop or control worrying 3 06/02/2024 10:06 AM Adrianne Fuentes MA Worrying too much about different things 2 06/02/2024 10:06 AM Adrianne Fuentes [place] Trouble relaxing 2 06/02/2024 10:06 AM Nancy Fuentes MA Being so restless that it is hard to sit still 3 06/02/2024 10:06 AM Adrianne Fuentes MA Becoming easily annoyed or irritable 1 06/02/2024 10:06 AM Adrianne Fuentes MA Feeling afraid as if somethi ng awful might happen 2 06/02/2024 10:06 AM Adrianne Fuentes MA SIDDHARTHA-7 Total Score 15 06/02/2024 10:06 AM Nancy Fuentes MA documented as of this encounter Plan of Treatment Upcoming Encounters Date Type Department Care Team (Late st Contact Info) Description 01/24/2025 3:15 PM EDT Office Visit [facility] [address] [place] [address] Liz Goldberg MD [address], [place] [phone] documented as of this encounter Procedures Procedure Name Priority Date/Time Associated Diagnosis Comments US ABDOMEN COMPLETE WITH ELASTOGRAPHY Routine 08/19/2024 9:44 AM EDT Metabolic dysfunction-associa vinh steatotic liver disease (MASLD) HEPATITIS C VIRAL RNA, QUANTITATIVE, REAL-TIME PCR Routine 06/02/2024 9:46 AM EST Metabolic dysfunction-associa vinh steatotic liver disease (MASLD) documented in this encounter Results * US Abdomen Comp w elastography (08/19/2024 9:44 AM EDT) Anatomical Region Laterality Modality Abdomen Ultrasound 08/19/2024 9:44 AM EDT Narrative 08/19/2024 10:44 AM EDT [address] [address] Ultrasound Report Signed Patient: Antoinette Nieves MR#: [id number] : 1985 Acct:[id number] Age/Sex: 39 / F ADM Date: 08/19/24 Loc: HO.US Attending Dr: Liz Goldberg MD Ordering Physician: Liz Goldberg MD Date of Service: 08/19/24 Procedure(s): US abdomen comp w elastography Accession Number(s): [id number] cc: Liz Goldberg MD EXAMINATION: US ABDOMEN COMPLETE WITH LIVER ELASTOGRAPHY HISTORY: elevated liver enzyme, likely fatty liver TECHNIQUE: Real-time grayscale ultrasound imaging of the abdomen was performed and images were reviewed. COMPARISON: There are no prior studies for comparison. FINDINGS: Liver: The right lobe of the liver measures 15.4 cm in size. The left lobe of the liver measures 8.1 cm in size. The liver demonstrates increased echotexture, consistent with steatosis. No focal mass or intrahepatic biliary ductal dilatation is identified. There is normal hepatopedal flow in the portal vein. Ultrasound elastography of the liver was performed with 10 separate measurements of the liver parenchyma with the patient in the supine position. Measurements were obtained approximately 2 cm below Zonia's capsule and perpendicular to the capsule. Images are of satisfactory quality. The median shear wave velocity is 1.36 m/s. The interquartile range/median (IQR/median) is 0.07. Gallbladder and biliary tree: The gallbladder is unremarkable, without evidence of calculi, wall thickening, or pericholecystic fluid. There is no sonographic Blevins sign. The common bile duct is normal in caliber measuring 5 mm. Kidneys: The right kidney measures 9.6 cm in length. The left kidney measures 11.1 cm in length. There is a subcentimeter cyst in the interpolar region of the left kidney. The kidneys are otherwise unremarkable, without evidence of solid masses, hydronephrosis, or calculi. Pancreas: The pancreatic head, neck, and body are unremarkable. The pancreatic tail is obscured by bowel gas. Spleen: The spleen is normal in size and contour, measuring 9.4 cm in length. Abdominal aorta and inferior vena cava: The visualized portions of the abdominal aorta and inferior vena cava are normal in caliber. There is no free fluid in the abdomen. US/US abdomen comp w elastography IMPRESSION: Hepatic steatosis. The median shear wave velocity in the liver is 1.36 m/s, corresponding to a median liver stiffness of 5.87 kPa. The IQR/median value is 0.07. This is indicative of a quality data set. Findings are indicative of a low elastography value which rules out advanced chronic liver disease in asymptomatic patients. REFERENCE: Society of Radiologists in Ultrasound Liver Stiffness Thresholds (2020): LIVER STIFFNESS THRESHOLDS: *Shear wave velocity less than 1.3 m/s (Liver Stiffness equal or less than 5 kPa): High probability of being normal. *Shear wave velocity less than 1.7 m/s (Liver Stiffness less than 9 kPa): In the absence of other known clinical signs, rules out compensated advanced chronic liver disease. *Shear wave velocity between 1.7-2.1 m/s (Liver Stiffness 9-13 kPa): Suggestive of compensated advanced chronic liver disease but need further test for confirmation. *Shear wave velocity between 2.1-2.4 m/s (Liver Stiffness 13-17 kPa): Rules in compensated advanced chronic liver disease. *Shear wave velocity greater than 2.4 m/s (Liver Stiffness over 17 kPa): Suggestive of clinically significant portal hypertension. QUALITY OF DATA SET: *IQR/Median value equal or less that 0.15 implies a quality data set. *IQR/Median value over 0.15 implies a poor quality data set. SIGNIFICANT CHANGE FROM PRIOR EXAM: Significant change if liver stiffness measurement is 10% or greater from prior exam. OTHER CONSIDERATIONS: The stage of liver fibrosis may be overestimated in the setting of acute hepatitis, liver inflammation, elevated liver function tests, hepatic vascular congestion, obstructive cholestasis, non-fasting state, and infiltrative diseases such as amyloidosis and lymphoma. In some patients with NAFLD, the liver stiffness thresholds for compensated advanced chronic liver disease may be lower. In causes other than viral hepatitis and NAFLD, liver stiffness thresholds are not well established. Electronically signed by: Demarcus Barclay MD 08/19/2024 10:41 AM EDT Dictated By: Demarcus Barclay MD Signed By: <Electronically signed by Demarcus Barclay MD in OV> 08/19/24 1041 DD/ 0944 TD/TT: 08/19/24 1014 Motor Inspection Mechanic: Procedure Note Donotuseinterpreter, Image - 08/19/[address] [address] Ultrasound Report Signed Patient: Olu Nieves#: [id number] : 1985Acct:[id number] Age/Sex: 39 / FADM Date: 08/19/24 Loc: HO.US Attending Dr: Liz Goldberg MD Ordering Physician: Liz Goldberg MD Date of Service: 08/19/24 Procedure(s): US abdomen comp w elastography Accession Number(s): [id number] cc: Liz Goldberg MD EXAMINATION: US ABDOMEN COMPLETE WITH LIVER ELASTOGRAPHY HISTORY: elevated liver enzyme, likely fatty liver TECHNIQUE: Real-time grayscale ultrasound imaging of the abdomen was performed and images were reviewed. COMPARISON: There are no prior studies for comparison. FINDINGS: Liver: The right lobe of the liver measures 15.4 cm in size. The left lobe of the liver measures 8.1 cm in size. The liver demonstrates increased echotexture, consistent with steatosis. No focal mass or intrahepatic biliary ductal dilatation is identified. There is normal hepatopedal flow in the portal vein. Ultrasound elastography of the liver was performed with 10 separate measurements of the liver parenchyma with the patient in the supine position. Measurements were obtained approximately 2 cm below Zonia's capsule and perpendicular to the capsule. Images are of satisfactory quality. The median shear wave velocity is 1.36 m/s. The interquartile range/median (IQR/median) is 0.07. Gallbladder and biliary tree: The gallbladder is unremarkable, without evidence of calculi, wall thickening, or pericholecystic fluid. There is no sonographic Blevins sign. The common bile duct is normal in caliber measuring 5 mm. Kidneys: The right kidney measures 9.6 cm in length. The left kidney measures 11.1 cm in length. There is a subcentimeter cyst in the interpolar region of the left kidney. The kidneys are otherwise unremarkable, without evidence of solid masses, hydronephrosis, or calculi. Pancreas: The pancreatic head, neck, and body are unremarkable. The pancreatic tail is obscured by bowel gas. Spleen: The spleen is normal in size and contour, measuring 9.4 cm in length. Abdominal aorta and inferior vena cava: The visualized portions of the abdominal aorta and inferior vena cava are normal in caliber. There is no free fluid in the abdomen. US/US abdomen comp w elastography IMPRESSION: Hepatic steatosis. The median shear wave velocity in the liver is 1.36 m/s, corresponding to a median liver stiffness of 5.87 kPa. The IQR/median value is 0.07. This is indicative of a quality data set. Findings are indicative of a low elastography value which rules out advanced chronic liver disease in asymptomatic patients. REFERENCE: Society of Radiologists in Ultrasound Liver Stiffness Thresholds (2020): LIVER STIFFNESS THRESHOLDS: *Shear wave velocity less than 1.3 m/s (Liver Stiffness equal or less than 5 kPa): High probability of being normal. *Shear wave velocity less than 1.7 m/s (Liver Stiffness less than 9 kPa): In the absence of other known clinical signs, rules out compensated advanced chronic liver disease. *Shear wave velocity between 1.7-2.1 m/s (Liver Stiffness 9-13 kPa): Suggestive of compensated advanced chronic liver disease but need further test for confirmation. *Shear wave velocity between 2.1-2.4 m/s (Liver Stiffness 13-17 kPa): Rules in compensated advanced chronic liver disease. *Shear wave velocity greater than 2.4 m/s (Liver Stiffness over 17 kPa): Suggestive of clinically significant portal hypertension. QUALITY OF DATA SET: *IQR/Median value equal or less that 0.15 implies a quality data set. *IQR/Median value over 0.15 implies a poor quality data set. SIGNIFICANT CHANGE FROM PRIOR EXAM: Significant change if liver stiffness measurement is 10% or greater from prior exam. OTHER CONSIDERATIONS: The stage of liver fibrosis may be overestimated in the setting of acute hepatitis, liver inflammation, elevated liver function tests, hepatic vascular congestion, obstructive cholestasis, non-fasting state, and infiltrative diseases such as amyloidosis and lymphoma. In some patients with NAFLD, the liver stiffness thresholds for compensated advanced chronic liver disease may be lower. In causes other than viral hepatitis and NAFLD, liver stiffness thresholds are not well established. Electronically signed by: Demarcus Barclay MD 08/19/2024 10:41 AM EDT Dictated By: Demarcus Barclay MD Signed By: <Electronically signed by Demarcus Barclay MD in [place]> 08/19/24 1041 DD/ 0944 TD/TT: 08/19/24 1014 Motor Inspection Mechanic: us Liz Goldberg MD [facility] [place] PROCEDURES Final Result * Hepatitis C Viral RNA, Quantitative, Real-Time PCR (06/02/2024 9:46 AM EST) Hepatitis C Viral Load <15 NOT DETECTED NOT DETECTED IU/mL [facility] HCV Log PCR <1.18 NOT DETECTED NOT DETECTED Log IU/mL [facility] Comment:For additional infor asim, please refer tohttp://education.[employer]/faq/DMB72e1(This link is being provided for informational/educational purposes only.)THIS TEST WAS PERFORMED AT:[facility] [place] [id number] VÁSQUEZ MD 06/02/2024 9:46 AM EST 06/03/2024 11:56 AM EST us Liz Goldberg MD LAB BLOOD ORDERABLES Final Resul t [facility] [address] [place] [address] [phone] documented in this encounter Visit Diagnoses Diagnosis Metabolic dysfunction-associated steatotic liver disease (MASLD)- Primary documented in this encounter Additional Health Concerns Assessment Noted Time PHQ-9 Depression Total Score: 15 025 10:06 AM EST documented as of this encounter Care Teams Gatekeeper Relationship Specialty Start Date End Date Liz Goldberg MD [address] [place] [id number] PCP - General Family Medicine 06/02/24 documented as of this encounter
== END 2025-01-04 09:19 | disposition home or self-care (01) ==
LOC: HO.HHCX 09:18
PROVIDERS: PCP Family Medicine; Visit Provider Family Medicine
DX: M25.562 Pain in left knee (principal)
CPT/HCPCS: 73564

== ENCOUNTER → 2025-01-04 09:22 | Outpatient (BNV) | payer MEDICAID, SELFPAY | PROVIDERS: PCP Family Medicine; Visit Provider Radiology Diagnostic Radiology | DX: M25.462 Effusion, left knee (principal) | CPT/HCPCS: 73564 ==